=== PATIENT | male | born 1975 | race Caucasian/White ===

== ENCOUNTER 2016-12-07 08:51 | Inpatient (IN) | payer OTHER ==
--- NOTE | 2016-12-07 09:18 | HP ---
COWS - Scale Resting Pulse: 2= [place] 101-120 Sweatin= Chills/Flushing Restless Observation: 1= Difficult to Sit Still Pupil Size: 0= Normal to Room Light Bone or Joint Aches: 2= Severe Diffuse Aches Runny Nose/ Eye Tearin= Runny Nose/Eyes GI Upset > 30mins: 1= Stomach Cramp Tremor Observation: 1= Tremor [place], Not Seen Yawning Observation: 1= 1-2x During Session Anxiety or Irritability: 2=Irritable/Anxious Goose Flesh Skin: 0=Smooth Skin COWS Score: 13 Admission ROS BHS - HPI Chief Complaint: I got into heroin again, I need help, I'm so anxious from withdrawal Allergies/Adverse Reactions: Allergies Allergy/AdvReac Type Severity Reaction Status Date / Time fluphenazine HCl AdvReac Severe Itching Verified 12/07/16 09:33 [From Prolixin] haloperidol [From Haldol] AdvReac Severe Itching Verified 12/07/16 09:33 walnuts Allergy Intermediate Swelling Uncoded 12/07/16 09:33 History of Present Illness: 41 yo gentleman here for detox from heroin, also using marijuana. This is one of multiple admissions for detox. Patient reports being on [facility] methadone program, but smoked marijuana with tanisha dust and became disoriented and wound up in [facility] last July 2016, then transferred to [facility] in [place] - during that time he was taken off the methadone and when he was discharged from [facility] he states he used heroin ( october). History of drug related seizure last year. Patient was also prescribed sixty ativan 2mg on 11/11 which he abused and used up in about 2 weeks. Exam Limitations: Clinical Condition - Ebola screening Have you traveled outside of the country in the last 21 days: No Have you had contact with anyone from an Ebola affected area: No Do you have a fever: No - Review of Systems Constitutional: Chills, Loss of Appetite, Changes in sleep, Weakness EENT: reports: Nose Congestion Respiratory: reports: No Symptoms reported Cardiac: reports: Chest Tightness GI: reports: Nausea, Abdominal cramping : reports: Dysuria Musculoskeletal: reports: Back Pain, Joint Pain, Muscle Pain Integumentary: reports: Pruritus Neuro: reports: Numbness, Tremors Endocrine: reports: No Symptoms Reported Hematology: reports: No Symptoms Reported Psychiatric: reports: Judgement Intact, Orientated x3, Anxious Other Systems: Reviewed and Negative Patient History - Patient Medical History Hx Anemia: No Hx Asthma: Yes Hx Chronic Obstructive Pulmonary Disease (COPD): No Hx Cancer: No Hx Cardiac Disorders: No Hx Congestive Heart Failure: No Hx Hypertension: No Hx Hypercholesterolemia: No Hx Pacemaker: No HX Cerebrovascular Accident: No Hx Seizures: Yes (last August 2015 - drug related) Hx Dementia: No Hx Diabetes: No Hx Gastrointestinal Disorders: No Hx Liver Disease: No Hx Genitourinary Disorders: No Hx Sexually Transmitted Disorders: No Hx Renal Disease (ESRD): No Hx Thyroid Disease: No Hx Human Immunodeficiency Virus (HIV): No Hx Hepatitis C: Yes (NEEDS TREATMENT) Hx Depression: Yes (with anxiety - hospitalized july;august 2016) Hx Suicide Attempt: No Hx Bipolar Disorder: Yes (on meds, sees psych Act Team) Hx Schizophrenia: No - Patient Surgical History Past Surgical History: No Hx Neurologic Surgery: No Hx Cataract Extraction: No Hx Cardiac Surgery: No Hx Lung Surgery: No Hx Breast Surgery: No Hx Breast Biopsy: No Hx Abdominal Surgery: No Hx Appendectomy: No Hx Cholecystectomy: No Hx Genitourinary Surgery: No Hx Section: No Hx Orthopedic Surgery: Yes (right hip replacement april 2016) Anesthesia Reaction: No - PPD History Previous Implant?: Yes Documented Results: Negative w/proof Implanted On Prior [facility] Admission?: No Date: 07/17/15 PPD to be Administered?: Yes - Reproductive History Patient is a Female of Child Bearing Age (11 -55 yrs old): No (male) - Smoking Cessation Smoking history: Current every day smoker Have you smoked in the past 12 months: Yes Aproximately how many cigarettes per day: 10 Cigars Per Day: 0 Hx Chewing Tobacco Use: No Initiated information on smoking cessation: Yes 'Breaking Loose' booklet given: 12/07/16 (gives) - Substance & Tx. History Hx Alcohol Use: No Hx Substance Use: Yes Substance Use Type: Alcohol, Heroin, Marijuana, Tranquilizers - Substances Abused Heroin Route: Inhalation Frequency: Daily Amount used: 10 bags Age of first use: 14 Date of Last Use: 12/06/16 Marijuana/Hashish Route: Smoking Frequency: Daily Amount used: 1 bag Age of first use: 14 Date of Last Use: 12/07/16 Family Disease History - Family Disease History Family Disease History: Heart Disease: Mother (living, breast cancer, stroke), CA: Father (living,glaucoma, melanoma), Mother, Other: Father, Brother (three brothers, drugs, alcohol) Admission Physical Exam [facility] - Vital Signs Vital Signs: Vital Signs Period Temp Pulse Resp BP Sys/Wooten Pulse Ox Last 24 Hr 98.1 F 107 20 127/88 - Physical General Appearance: Yes: Nourished, Appropriately Dressed, Mild Distress, Obese , Anxious HEENTM: Yes: Hearing grossly Normal, Normocephalic, Normal Voice, Pharynx Normal Respiratory: Yes: No Respiratory Distress, Wheezing Neck: Yes: No masses,lesions,Nodules, Supple Breast: Yes: Breast Exam Deferred Cardiology: Yes: Regular Rhythm, Tachycardia Abdominal: Yes: Soft, Protuberent Genitourinary: Yes: Dysuria Extremities: Yes: Normal Inspection, Non-Tender Neurological: Yes: Fully Oriented, Alert, Motor Strength 5/5, Normal Mood/Affect , Normal Response Integumentary: Yes: Warm, Other (scratch claros on arms, chest from itching) Lymphatic: Yes: Within Normal Limits - Diagnostic (1) Opioid dependence with withdrawal Current Visit: Yes Status: Chronic (2) Seizure Current Visit: Yes Status: Chronic (3) Cannabis dependence Current Visit: Yes Status: Chronic (4) Nicotine dependence Current Visit: Yes Status: Chronic (5) Obesity (BMI 30-39.9) Current Visit: Yes Status: Chronic (6) left knee arthritis Current Visit: Yes Status: Chronic (7) Hepatitis C Current Visit: Yes Status: Chronic Qualifiers: Viral hepatitis chronicity: chronic Hepatic coma status: without hepatic coma Qualified Code(s): B18.2 - Chronic viral hepatitis C; B18.2 - Chronic viral hepatitis C; B18.2 - Chronic viral hepatitis C; B18.2 - Chronic viral hepatitis C Cleared for Admission S - Detox or Rehab S Level of Care: Medically Managed Detox Regimen/Protocol: Methadone [facility] Breath Alcohol Content Breath Alcohol Content: 0
[2016-12-07 09:20] VITALS: BMI 39.4
[2016-12-07] MEDS ORDERED: MAGNESIUM CITRATE 300 ML BOTTLE PO PRN (09:31)
[2016-12-07] MEDS ORDERED: LOPERAMIDE HCL 2 MG CAPSULE PO PRN (09:31)
[2016-12-07] MEDS ORDERED: MAG HYDROX/AL HYDROX/SIMETH 30 ML UNIT-DOSE CUP PO PRN (09:31)
[2016-12-07] MEDS ORDERED: P-EPHED 60MG/TRIPROLIDI 2.5MG TABLET PO PRN (09:31)
[2016-12-07] MEDS ORDERED: MENTHOL/PHENOL 1 EACH UD MM PRN (09:31)
[2016-12-07] MEDS ORDERED: ACETAMINOPHEN 325 MG TABLET (FP) PO PRN (09:31)
[2016-12-07] MEDS ORDERED: IBUPROFEN 400 MG TABLET (FP) PO PRN (09:31)
[2016-12-07] MEDS ORDERED: MAGNESIUM HYDROX 2400MG/30ML ORAL SUSPENSION 30 ML CUP PO PRN (09:31)
[2016-12-07] MEDS ORDERED: guaiFENesin/D-METHORPHAN HB 10 ML UNIT-DOSE CUPS PO PRN (09:31)
[2016-12-07] MEDS ORDERED: NICOTINE POLACRILEX 4 MG GUM BC PRN (09:31)
[2016-12-07] MEDS ORDERED: ALBUTEROL SO4 18 GM HFA INHALER IH PRN (09:33)
[2016-12-07] MEDS ORDERED: METHADONE HCL 10 MG TABLET (FOR DETOX USE ONLY) PO ONE ×2 (10:30→23:00)
[2016-12-07] MEDS: diazePAM 5 MG TABLET PO PRN ×3 (11:54→21:23)
[2016-12-07] MEDS: PRENATAL VITAMINS W/ FOLIC ACID TABLET (FP) PO SCH (11:57)
--- NOTE | 2016-12-07 14:04 | CONSULT ---
[facility] Psychiatric Consult - Data Date of interview: 12/07/16 Admission source: [facility] Identifying data: Readmission to [facility] for this 41 y/o male seeking detox treatment on for alcohol,marihuana,xanax and heroin dependence.Patient is single without children,domiciled,unemployed and supported on SSI benefits. Substance Abuse History: Discussed with patient in this session.Mr Chamberlain admits to an extensive history of substance abuse as described in this [facility] report. Smoking history: Current every day smoker. Have you smoked in the past 12 months: Yes. Aproximately how many cigarettes per day: 10. Cigars Per Day: 0. Hx Chewing Tobacco Use: No. Initiated information on smoking cessation: Yes. 'Breaking Loose' booklet given: 12/07/16 (gives). - Substance & Tx. History. Hx Alcohol Use: No. Hx Substance Use: Yes. Substance Use Type: Alcohol, Heroin, Marijuana, Tranquilizers. - Substances Abused. Heroin. Route: Inhalation. Frequency: Daily. Amount used: 10 bags. Age of first use: 14. Date of Last Use: 12/06/16. Marijuana/Hashish. Route: Smoking. Frequency: Daily. Amount used: 1 bag. Age of first use: 14. Date of Last Use: 12/07/16 Medical History: Multiple medical co-morbidities : obesity,avascular necrosis ( femoral heads),arthritis (left knee),hepatitis C,withdrawal-related seizures, history of right hip replacement and bronchial asthma. Psychiatric History: Extensive history of mental illness characterized with multiple psychotic decompensations which warranted numerous psychiatric hospitalizations.Mr Chamberlain reports the diagnosis of Bipolar Disorder.He is known to various institutions,including [facility] in [place] and [facility] in [facility].Used to be on methadone maintenance (130 mg/day).Patient is currently maintained on a regimen of neurontin 800 mg po tid + zyprexa 30 mg/hs + ativan 2 mg po bid.He was recently discharged from [facility] and [facility] in [facility].In 2016,it appears that the patient was followed by a local ACT team.Patient denies history of suicide attempts.As per self-report,medications were taken last night prior to this [facility] visit. Physical/Sexual Abuse/Trauma History: Patient denies history of abuse. Additional Comment: No toxicology results available. Mental Status Exam - Mental Status Exam Alert and Oriented to: Time, Place, Person Cognitive Function: Grossly Intact Patient Appearance: Unkempt, Disheveled (obese ; wearing an earring in left ear ; edentulous,poor oral hygiene) Mood: Nervous, Withdrawn, Anxious Affect: Mood Congruent Patient Behavior: Fatigued, Cooperative Speech Pattern: Clear Voice Loudness: Normal Thought Process: Goal Oriented Thought Disorder: Bizarre Hallucinations: Denies Suicidal Ideation: Denies Homicidal Ideation: Denies Insight/Judgement: Poor Sleep: Poorly, Difficulty falling asleep Appetite: Good Muscle strength/Tone: Normal Gait/Station: Other (not observed ; patient remains supine through the psychiatric interview) Psychiatric Findings - Problem List ([place] 1, 2,3) (1) Opioid dependence with withdrawal Current Visit: Yes Status: Acute (2) Cannabis dependence Current Visit: Yes Status: Acute (3) Nicotine dependence Current Visit: Yes Status: Chronic (4) Benzodiazepine abuse Current Visit: Yes Status: Acute Comment: As evidenced by exhausting,in less than two weeks,his refill for lorazepam (30 day supply). (5) Bipolar disorder Current Visit: Yes Status: Chronic (6) Hepatitis C Current Visit: Yes Status: Chronic Qualifiers: Viral hepatitis chronicity: chronic Hepatic coma status: without hepatic coma Qualified Code(s): B18.2 - Chronic viral hepatitis C; B18.2 - Chronic viral hepatitis C; B18.2 - Chronic viral hepatitis C; B18.2 - Chronic viral hepatitis C (7) Obesity (BMI 30-39.9) Current Visit: Yes Status: Chronic (8) Seizure Current Visit: Yes Status: Chronic (9) Avascular necrosis of the head of femur Current Visit: No Status: Chronic Comment: for ortho f/u at [facility] - needs hip replacement after further weight loss now has wheelchair (10) HTN (hypertension) Current Visit: Yes Status: Chronic Qualifiers: Hypertension type: essential hypertension Qualified Code(s): I10 - Essential (primary) hypertension; I10 - Essential (primary) hypertension; I10 - Essential (primary) hypertension Comment: for f/u with primary, wt loss can help (11) h/o left sciatica Current Visit: No Status: Chronic Comment: gabapentin, stretches - Initial Treatment Plan Initial Treatment Plan: Psychoeducation.Detoxification.Medications : gabapentin 800 mg po tid + olanzapine 30 mg po hs.Side effects/benefits discussed with the patient.He agrees with this careplan.Pharmacy claims are reviewed : noted refiils for haloperidol (20 mg/day) + cogentin (2 mg/day) issued on 11/11/16 ( in addition to medications listed above) at [facility].Mr Chamberlain declines to resume haldol and cogentin." They make me feel stiff and weird." Feels more controlled on the combination of neurontin + olanzapine.Observation.
[2016-12-07 16:56] LABS: URINE APPEARANCE SLCLOUDY; URINE BILIRUBIN NEGATIVE (NEGATIVE); URINE BLOOD NEGATIVE (NEGATIVE); URINE COLOR DKYELLOW; URINE GLUCOSE (UA) NEGATIVE (NEGATIVE); URINE KETONE NEGATIVE (NEGATIVE); URINE NITRITE NEGATIVE (NEGATIVE); URINE PROTEIN NEGATIVE (NEGATIVE); URINE UROBILINOGEN NEGATIVE mg/dL (0.2-1.0)
[2016-12-07 21:56] LABS: URINE LEUK ESTERASE Negative (NEGATIVE)
[2016-12-07] MEDS: THIAMINE HCL 100 MG TABLET (FP) PO SCH (22:21)
[2016-12-07] MEDS: OLANZapine 10 MG TABLET PO SCH (22:22)
[2016-12-07] MEDS: GABAPENTIN 400 MG CAPSULE (FP) PO SCH (22:22)
[2016-12-07] MEDS: diphenhydrAMINE HCL 50 MG CAPSULE PO PRN (22:23)
[2016-12-08] MEDS: GABAPENTIN 400 MG CAPSULE (FP) PO SCH ×3 (06:17→22:17)
[2016-12-08] MEDS: diazePAM 5 MG TABLET PO PRN ×4 (06:17→19:24)
--- NOTE | 2016-12-08 09:10 | EKG ---
Test Reason : Blood Pressure : / mmHG Vent. Rate : 100 BPM Atrial Rate : 100 BPM P-R Int : 144 ms QRS Dur : 088 ms QT Int : 324 ms P-R-T Axes : 062 041 051 degrees QTc Int : 417 ms NORMAL SINUS RHYTHM NORMAL ECG WHEN COMPARED WITH ECG OF 03-OCT-2015 10:25, PREMATURE ATRIAL COMPLEXES ARE NO LONGER PRESENT Confirmed by TYSHAWN IRWIN MD ([id number]) on 12/08/2016 9:10:08 AM Referred By: Confirmed By:TYSHAWN IRWIN MD
[2016-12-08] MEDS ORDERED: METHADONE HCL 10 MG TABLET (FOR DETOX USE ONLY) PO ONE (10:00)
[2016-12-08] MEDS: PRENATAL VITAMINS W/ FOLIC ACID TABLET (FP) PO SCH (10:28)
[2016-12-08 11:12] LABS: MCH 28.1 pg (25.7-33.7); MCHC 33.4 g/dl (32.0-35.9); MEAN CELL VOLUME 84.2 fl (80-96); PLATELET COUNT 367 K/MM3 (134-434); RDW 15.6 % (11.9-15.9); WHITE BLOOD COUNT 13.1 K/mm3 (4.0-10.0)
[2016-12-08 11:18] LABS: ALBUMIN 3.7 g/dl (3.4-5.0); ANION GAP 10 (8-16); BILIRUBIN,TOTAL 0.3 mg/dL (0.2-1.0); CALCIUM 9.1 mg/dL (8.5-10.1); CO2 22 mmol/L (21-32); CREATININE 0.6 mg/dL (0.7-1.3); GLUCOSE,RANDOM 157 mg/dL (74-106); SGOT/AST 22 U/L (15-37); SGPT/ALT 31 U/L (12-78); TOT PROT 7.6 g/dl (6.4-8.2)
[2016-12-08 11:19] LABS: ALK PHOS 117 U/L (45-117)
[2016-12-08] MEDS ORDERED: FLU VACCINE QUAD 60 MCG/0.5 ML (MDV 17-18) IM ONE (12:00)
[2016-12-08] MEDS ORDERED: ONDANSETRON *ODT* 4 MG TABLET SL ONE (12:39)
[2016-12-08] MEDS ORDERED: CYCLOBENZAPRINE HCL 10 MG TABLET (FP) PO SCH (14:00)
--- NOTE | 2016-12-08 17:11 | PN ---
BHS COWS - Scale Resting Pulse: 1= MA 81-100 Sweatin= Chills/Flushing Restless Observation: 3= Extraneous Movement Pupil Size: 0= Normal to Room Light Bone or Joint Aches: 2= Severe Diffuse Aches Runny Nose/ Eye Tearin= Runny Nose/Eyes GI Upset > 30mins: 1= Stomach Cramp Tremor Observation of Outstretched Hands: 2= Slight Tremor Visible Yawning Observation: 1= 1-2x During Session Anxiety or Irritability: 2=Irritable/Anxious Goose Flesh Skin: 0=Smooth Skin COWS Score: 15 BHS Progress Note (SOAP) Subjective: Sweating, chills, nausea (unable to eat adequately), restless, constipated x 2 days (instructed to notify nurse) Objective: 12/08/16 17:08 Last Vital Signs Temp Pulse Resp BP Pulse Ox 98.8 F 100 H 20 122/76 12/08/16 12:59 12/08/16 12:59 12/08/16 12:59 12/08/16 12:59 Laboratory Tests 12/07/16 12/08/16 12/08/16 11:42 06:14 06:14 WBC 13.1 H D RBC 5.48 Hgb 15.4 Hct 46.1 MCV 84.2 MCH 28.1 MCHC 33.4 RDW 15.6 Plt Count 367 MPV 10.0 Sodium 135 L Potassium 4.2 Chloride 103 Carbon Dioxide 22 Anion Gap 10 BUN 8 D Creatinine 0.6 L D Creat Clearance w eGFR > 60 Random Glucose 157 H D Calcium 9.1 Total Bilirubin 0.3 D AST 22 D ALT 31 D Alkaline Phosphatase 117 Total Protein 7.6 Albumin 3.7 Urine Color Dkyellow Urine Appearance Slcloudy Urine pH 6.0 Ur Specific [place] 1.015 Urine Protein Negative Urine Glucose (UA) Negative Urine Ketones Negative Urine Blood Negative Urine Nitrite Negative Urine Bilirubin Negative Urine Urobilinogen Negative Ur Leukocyte Esterase Negative RPR Titer 12/08/16 06:14 WBC RBC Hgb Hct MCV MCH MCHC RDW Plt Count MPV Sodium Potassium Chloride Carbon Dioxide Anion Gap BUN Creatinine Creat Clearance w eGFR Random Glucose Calcium Total Bilirubin AST ALT Alkaline Phosphatase Total Protein Albumin Urine Color Urine Appearance Urine pH Ur Specific [place] Urine Protein Urine Glucose (UA) Urine Ketones Urine Blood Urine Nitrite Urine Bilirubin Urine Urobilinogen Ur Leukocyte Esterase RPR Titer Nonreactive Labs noted: wbc 13.1, serum glucose 157 Assessment: 12/08/16 17:09 Withdrawal symptoms Noted with leukocytosis and hyperglycemia Plan: Continue detox Leukocytosis: asymptomatic for infection, repeat CBC Hyperglycemia: repeat fasting serum glucose, send HbA1c, start finger stick glucose ac meal with insulin novolog sliding scale coverage. Initiate antidiabetic medication if warranted.
[2016-12-08] MEDS ORDERED: ONDANSETRON *ODT* 4 MG TABLET SL PRN (20:00)
[2016-12-08] MEDS: THIAMINE HCL 100 MG TABLET (FP) PO SCH (22:17)
[2016-12-08] MEDS: OLANZapine 10 MG TABLET PO SCH (22:18)
[2016-12-09] MEDS: GABAPENTIN 400 MG CAPSULE (FP) PO SCH ×3 (05:21→22:11)
[2016-12-09] MEDS: diazePAM 5 MG TABLET PO PRN ×4 (05:21→20:11)
[2016-12-09] MEDS: CYCLOBENZAPRINE HCL 10 MG TABLET (FP) PO PRN (05:21)
[2016-12-09] MEDS: INSULIN SLIDING SCALE (NOVOLOG) 1 VIAL SQ SCH ×3 (06:52→16:33)
[2016-12-09] MEDS ORDERED: METHADONE HCL 5 MG TABLET (FOR DETOX USE ONLY) PO ONE (10:00)
--- NOTE | 2016-12-09 10:29 | PN ---
BHS COWS - Scale Resting Pulse: 0= ME 80 or Below Sweatin= Chills/Flushing Restless Observation: 3= Extraneous Movement Pupil Size: 0= Normal to Room Light Bone or Joint Aches: 4=Acute Joint/Muscle Pain Runny Nose/ Eye Tearin= Nasal Congestion GI Upset > 30mins: 1= Stomach Cramp Tremor Observation of Outstretched Hands: 1= Tremor [place], Not Seen Yawning Observation: 1= 1-2x During Session Anxiety or Irritability: 2=Irritable/Anxious Goose Flesh Skin: 0=Smooth Skin COWS Score: 14 S Progress Note (SOAP) Subjective: ANXIETY, SWEATS, NAUSEA,FATIGUE. Objective: 12/09/16 10:33 Vital Signs Temperature 98.2 F 12/09/16 09:29 Pulse Rate 59 L 12/09/16 09:29 Respiratory Rate 18 12/09/16 09:29 Blood Pressure 135/82 12/09/16 09:29 O2 Sat by Pulse Oximetry (%) Laboratory Last Values WBC 13.1 K/mm3 (4.0-10.0) H D 12/08/16 06:14 RBC 5.48 M/mm3 (4.00-5.60) 12/08/16 06:14 Hgb 15.4 GM/dL (11.7-16.9) 12/08/16 06:14 Hct 46.1 % (35.4-49) 12/08/16 06:14 MCV 84.2 fl (80-96) 12/08/16 06:14 MCH 28.1 pg (25.7-33.7) 12/08/16 06:14 MCHC 33.4 g/dl (32.0-35.9) 12/08/16 06:14 RDW 15.6 % (11.9-15.9) 12/08/16 06:14 Plt Count 367 K/MM3 (134-434) 12/08/16 06:14 MPV 10.0 fl (7.5-11.1) 12/08/16 06:14 Sodium 135 mmol/L (136-145) L 12/08/16 06:14 Potassium 4.2 mmol/L (3.5-5.1) 12/08/16 06:14 Chloride 103 mmol/L (98-107) 12/08/16 06:14 Carbon Dioxide 22 mmol/L (21-32) 12/08/16 06:14 Anion Gap 10 (8-16) 12/08/16 06:14 BUN 8 mg/dL (7-18) D 12/08/16 06:14 Creatinine 0.6 mg/dL (0.7-1.3) L D 12/08/16 06:14 Creat Clearance w eGFR > 60 (>60) 12/08/16 06:14 POC Glucometer 97 UNITS (()) 12/09/16 05:20 Random Glucose 157 mg/dL (74-106) H D 12/08/16 06:14 Fasting Glucose 92 mg/dL (70-105) 12/09/16 06:45 Calcium 9.1 mg/dL (8.5-10.1) 12/08/16 06:14 Total Bilirubin 0.3 mg/dL (0.2-1.0) D 12/08/16 06:14 AST 22 U/L (15-37) D 12/08/16 06:14 ALT 31 U/L (12-78) D 12/08/16 06:14 Alkaline Phosphatase 117 U/L (45-117) 12/08/16 06:14 Total Protein 7.6 g/dl (6.4-8.2) 12/08/16 06:14 Albumin 3.7 g/dl (3.4-5.0) 12/08/16 06:14 Urine Color Dkyellow 12/07/16 11:42 Urine Appearance Slcloudy 12/07/16 11:42 Urine pH 6.0 (5.0-8.0) 12/07/16 11:42 Ur Specific [place] 1.015 (1.005-1.025) 12/07/16 11:42 Urine Protein Negative (NEGATIVE) 12/07/16 11:42 Urine Glucose (UA) Negative (NEGATIVE) 12/07/16 11:42 Urine Ketones Negative (NEGATIVE) 12/07/16 11:42 Urine Blood Negative (NEGATIVE) 12/07/16 11:42 Urine Nitrite Negative (NEGATIVE) 12/07/16 11:42 Urine Bilirubin Negative (NEGATIVE) 12/07/16 11:42 Urine Urobilinogen Negative mg/dL (0.2-1.0) 12/07/16 11:42 Ur Leukocyte Esterase Negative (NEGATIVE) 12/07/16 11:42 RPR Titer Nonreactive (NONREACTIVE) 12/08/16 06:14 Assessment: 12/09/16 10:34 WITHDRAWAL SX Plan: CONTINUE DETOX
[2016-12-09] MEDS: PRENATAL VITAMINS W/ FOLIC ACID TABLET (FP) PO SCH (10:31)
[2016-12-09] MEDS: OLANZapine 10 MG TABLET PO SCH (22:11)
[2016-12-09] MEDS: THIAMINE HCL 100 MG TABLET (FP) PO SCH (22:11)
[2016-12-09] MEDS: diphenhydrAMINE HCL 50 MG CAPSULE PO PRN (22:11)
[2016-12-10] MEDS: INSULIN SLIDING SCALE (NOVOLOG) 1 VIAL SQ SCH ×3 (06:24→16:30)
[2016-12-10] MEDS: GABAPENTIN 400 MG CAPSULE (FP) PO SCH ×3 (06:25→22:07)
[2016-12-10] MEDS ORDERED: METHADONE HCL 5 MG TABLET (FOR DETOX USE ONLY) PO ONE (10:00)
[2016-12-10] MEDS: PRENATAL VITAMINS W/ FOLIC ACID TABLET (FP) PO SCH (10:19)
[2016-12-10] MEDS: hydrOXYzine PAMOATE 50 MG CAPSULE (FP) PO PRN ×2 (10:20→20:56)
[2016-12-10 12:02] LABS: WHITE BLOOD COUNT 8.5 K/mm3 (4.0-10.0)
[2016-12-10 12:03] LABS: BASOPHIL 0.5 % (0-2.0); EOSINOPHIL 7.6 % (0-4.5); MCH 27.9 pg (25.7-33.7); MCHC 32.8 g/dl (32.0-35.9); MEAN PLT VOLUME 9.8 fl (7.5-11.1); NEUTROPHILS 51.5 % (42.8-82.8); PLATELET COUNT 291 K/MM3 (134-434); RDW 15.4 % (11.9-15.9)
--- NOTE | 2016-12-10 12:21 | PN ---
BHS Progress Note (SOAP) Subjective: DECREASED ANXIETY,TREMORS. ALERT O X 3. NAD. Objective: 12/10/16 12:20 Vital Signs Temperature 97.9 F 12/10/16 10:04 Pulse Rate 100 H 12/10/16 10:04 Respiratory Rate 20 12/10/16 10:04 Blood Pressure 130/74 12/10/16 10:04 O2 Sat by Pulse Oximetry (%) Laboratory Last Values WBC 8.5 K/mm3 (4.0-10.0) D 12/09/16 06:45 Corrected WBC (auto) Electrical Test Engineer 12/09/16 06:45 RBC 5.23 M/mm3 (4.00-5.60) 12/09/16 06:45 Hgb 14.6 GM/dL (11.7-16.9) 12/09/16 06:45 Hct 44.5 % (35.4-49) 12/09/16 06:45 MCV 85.0 fl (80-96) 12/09/16 06:45 MCH 27.9 pg (25.7-33.7) 12/09/16 06:45 MCHC 32.8 g/dl (32.0-35.9) 12/09/16 06:45 RDW 15.4 % (11.9-15.9) 12/09/16 06:45 Plt Count 291 K/MM3 (134-434) D 12/09/16 06:45 MPV 9.8 fl (7.5-11.1) 12/09/16 06:45 Neutrophils % 51.5 % (42.8-82.8) D 12/09/16 06:45 Lymphocytes % 28.7 % (8-40) D 12/09/16 06:45 Monocytes % 11.7 % (3.8-10.2) H 12/09/16 06:45 Eosinophils % 7.6 % (0-4.5) H D 12/09/16 06:45 Basophils % 0.5 % (0-2.0) 12/09/16 06:45 Platelet Estimate Electrical Test Engineer 12/09/16 06:45 Platelet Comment Electrical Test Engineer 12/09/16 06:45 Platelet Comment Electrical Test Engineer 12/09/16 06:45 RBC Morphology Electrical Test Engineer 12/09/16 06:45 Sodium 135 mmol/L (136-145) L 12/08/16 06:14 Potassium 4.2 mmol/L (3.5-5.1) 12/08/16 06:14 Chloride 103 mmol/L (98-107) 12/08/16 06:14 Carbon Dioxide 22 mmol/L (21-32) 12/08/16 06:14 Anion Gap 10 (8-16) 12/08/16 06:14 BUN 8 mg/dL (7-18) D 12/08/16 06:14 Creatinine 0.6 mg/dL (0.7-1.3) L D 12/08/16 06:14 Creat Clearance w eGFR > 60 (>60) 12/08/16 06:14 POC Glucometer 116 UNITS (()) 12/10/16 11:11 Random Glucose 157 mg/dL (74-106) H D 12/08/16 06:14 Fasting Glucose 92 mg/dL (70-105) 12/09/16 06:45 Hemoglobin A1c % 5.9 % (4.8-6.0) 12/09/16 07:00 Calcium 9.1 mg/dL (8.5-10.1) 12/08/16 06:14 Total Bilirubin 0.3 mg/dL (0.2-1.0) D 12/08/16 06:14 AST 22 U/L (15-37) D 12/08/16 06:14 ALT 31 U/L (12-78) D 12/08/16 06:14 Alkaline Phosphatase 117 U/L (45-117) 12/08/16 06:14 Total Protein 7.6 g/dl (6.4-8.2) 12/08/16 06:14 Albumin 3.7 g/dl (3.4-5.0) 12/08/16 06:14 Urine Color Dkyellow 12/07/16 11:42 Urine Appearance Slcloudy 12/07/16 11:42 Urine pH 6.0 (5.0-8.0) 12/07/16 11:42 Ur Specific [place] 1.015 (1.005-1.025) 12/07/16 11:42 Urine Protein Negative (NEGATIVE) 12/07/16 11:42 Urine Glucose (UA) Negative (NEGATIVE) 12/07/16 11:42 Urine Ketones Negative (NEGATIVE) 12/07/16 11:42 Urine Blood Negative (NEGATIVE) 12/07/16 11:42 Urine Nitrite Negative (NEGATIVE) 12/07/16 11:42 Urine Bilirubin Negative (NEGATIVE) 12/07/16 11:42 Urine Urobilinogen Negative mg/dL (0.2-1.0) 12/07/16 11:42 Ur Leukocyte Esterase Negative (NEGATIVE) 12/07/16 11:42 RPR Titer Nonreactive (NONREACTIVE) 12/08/16 06:14 Assessment: 12/10/16 12:21 WITHDRAWAL SX Plan: CONTINUE DETOX
[2016-12-10] MEDS: diphenhydrAMINE HCL 50 MG CAPSULE PO PRN (22:06)
[2016-12-10] MEDS: OLANZapine 10 MG TABLET PO SCH (22:07)
[2016-12-10] MEDS: THIAMINE HCL 100 MG TABLET (FP) PO SCH (22:07)
[2016-12-11] MEDS: hydrOXYzine PAMOATE 50 MG CAPSULE (FP) PO PRN ×3 (05:37→16:54)
[2016-12-11] MEDS: GABAPENTIN 400 MG CAPSULE (FP) PO SCH ×3 (05:37→22:03)
[2016-12-11] MEDS: CYCLOBENZAPRINE HCL 10 MG TABLET (FP) PO PRN (05:37)
[2016-12-11] MEDS: INSULIN SLIDING SCALE (NOVOLOG) 1 VIAL SQ SCH ×3 (07:53→16:29)
[2016-12-11] MEDS ORDERED: METHADONE HCL 10 MG TABLET (FOR DETOX USE ONLY) PO ONE (10:00)
[2016-12-11] MEDS: PRENATAL VITAMINS W/ FOLIC ACID TABLET (FP) PO SCH (10:09)
--- NOTE | 2016-12-11 10:32 | PN ---
S Progress Note (SOAP) Subjective: ALERT O X 3. DECREASED ANXIETY,TREMORS.OOB AMBULATING WITH A LIMP/UNSTABLE BACK- -CHRONIC HIP PROBLEM. STATES USES CANE AND REQUESTS FOR ONE. Objective: 12/11/16 10:30 Vital Signs Temperature 97.8 F 12/11/16 08:59 Pulse Rate 93 H 12/11/16 08:59 Respiratory Rate 20 12/11/16 08:59 Blood Pressure 122/77 12/11/16 08:59 O2 Sat by Pulse Oximetry (%) Laboratory Last Values WBC 8.5 K/mm3 (4.0-10.0) D 12/09/16 06:45 Corrected WBC (auto) [employer]amp [employer] Cargo Supervisor 12/09/16 06:45 RBC 5.23 M/mm3 (4.00-5.60) 12/09/16 06:45 Hgb 14.6 GM/dL (11.7-16.9) 12/09/16 06:45 Hct 44.5 % (35.4-49) 12/09/16 06:45 MCV 85.0 fl (80-96) 12/09/16 06:45 MCH 27.9 pg (25.7-33.7) 12/09/16 06:45 MCHC 32.8 g/dl (32.0-35.9) 12/09/16 06:45 RDW 15.4 % (11.9-15.9) 12/09/16 06:45 Plt Count 291 K/MM3 (134-434) D 12/09/16 06:45 MPV 9.8 fl (7.5-11.1) 12/09/16 06:45 Neutrophils % 51.5 % (42.8-82.8) D 12/09/16 06:45 Lymphocytes % 28.7 % (8-40) D 12/09/16 06:45 Monocytes % 11.7 % (3.8-10.2) H 12/09/16 06:45 Eosinophils % 7.6 % (0-4.5) H D 12/09/16 06:45 Basophils % 0.5 % (0-2.0) 12/09/16 06:45 Platelet Estimate [employer]argo Supervisor 12/09/16 06:45 Platelet Comment [employer] And Cargo Supervisor 12/09/16 06:45 Platelet Comment R[employer] Cargo Supervisor 12/09/16 06:45 RBC Morphology [employer] Supervisor 12/09/16 06:45 Sodium 135 mmol/L (136-145) L 12/08/16 06:14 Potassium 4.2 mmol/L (3.5-5.1) 12/08/16 06:14 Chloride 103 mmol/L (98-107) 12/08/16 06:14 Carbon Dioxide 22 mmol/L (21-32) 12/08/16 06:14 Anion Gap 10 (8-16) 12/08/16 06:14 BUN 8 mg/dL (7-18) D 12/08/16 06:14 Creatinine 0.6 mg/dL (0.7-1.3) L D 12/08/16 06:14 Creat Clearance w eGFR > 60 (>60) 12/08/16 06:14 POC Glucometer 114 UNITS (()) 12/11/16 05:36 Random Glucose 157 mg/dL (74-106) H D 12/08/16 06:14 Fasting Glucose 92 mg/dL (70-105) 12/09/16 06:45 Hemoglobin A1c % 5.9 % (4.8-6.0) 12/09/16 07:00 Calcium 9.1 mg/dL (8.5-10.1) 12/08/16 06:14 Total Bilirubin 0.3 mg/dL (0.2-1.0) D 12/08/16 06:14 AST 22 U/L (15-37) D 12/08/16 06:14 ALT 31 U/L (12-78) D 12/08/16 06:14 Alkaline Phosphatase 117 U/L (45-117) 12/08/16 06:14 Total Protein 7.6 g/dl (6.4-8.2) 12/08/16 06:14 Albumin 3.7 g/dl (3.4-5.0) 12/08/16 06:14 Urine Color Dkyellow 12/07/16 11:42 Urine Appearance Slcloudy 12/07/16 11:42 Urine pH 6.0 (5.0-8.0) 12/07/16 11:42 Ur Specific [place] 1.015 (1.005-1.025) 12/07/16 11:42 Urine Protein Negative (NEGATIVE) 12/07/16 11:42 Urine Glucose (UA) Negative (NEGATIVE) 12/07/16 11:42 Urine Ketones Negative (NEGATIVE) 12/07/16 11:42 Urine Blood Negative (NEGATIVE) 12/07/16 11:42 Urine Nitrite Negative (NEGATIVE) 12/07/16 11:42 Urine Bilirubin Negative (NEGATIVE) 12/07/16 11:42 Urine Urobilinogen Negative mg/dL (0.2-1.0) 12/07/16 11:42 Ur Leukocyte Esterase Negative (NEGATIVE) 12/07/16 11:42 RPR Titer Nonreactive (NONREACTIVE) 12/08/16 06:14 Assessment: 12/11/16 10:30 WITHDRAWAL SX Plan: CONTINUE DETOX OBTAIN CANE TODAY FOR PT'S AMBULATION FALL PRECAUTION
[2016-12-11] MEDS: diphenhydrAMINE HCL 50 MG CAPSULE PO PRN (22:03)
[2016-12-11] MEDS: OLANZapine 10 MG TABLET PO SCH (22:03)
[2016-12-11] MEDS: THIAMINE HCL 100 MG TABLET (FP) PO SCH (22:03)
[2016-12-12] MEDS: GABAPENTIN 400 MG CAPSULE (FP) PO SCH (05:40)
[2016-12-12] MEDS ORDERED: METHADONE HCL 5 MG TABLET (FOR DETOX USE ONLY) PO ONE (06:00)
[2016-12-12 06:05] VITALS: BP 98/63; PULSE 67; TEMP 98.2
[2016-12-12] MEDS: INSULIN SLIDING SCALE (NOVOLOG) 1 VIAL SQ SCH (06:54)
--- NOTE | 2016-12-12 13:59 | DS ---
[facility] Detox Discharge Summary Admission Date: 12/07/16 Discharge Date: 12/12/16 - History Present History: Cannabis Dependence, Opioid Dependence, Sedative Dependence Additional Comments: PATIENT GOING TO [facility] FOR AFTERCARE. PATIENT WAS DISCHARGED FROM DETOX UNIT IN STABLE MEDICAL CONDITION. Pertinent Past History: Asthma, Hep C, Nicotine Dependence, Depression, History of Sciatica (Left-sided) , History of Avascular Necrosis of Head of Femur, History of Seizures (due to Withdrawal), Arthritis of Left Hip, Bipolar Disorder. - Physical Exam Results Vital Signs: Vital Signs Temperature 98.2 F 12/12/16 06:03 Pulse Rate 67 12/12/16 06:03 Respiratory Rate 18 12/12/16 06:03 Blood Pressure 98/63 12/12/16 06:03 O2 Sat by Pulse Oximetry (%) Pertinent Admission Physical Exam Findings: WITHDRAWAL SYMPTOMS. Laboratory Tests 12/07/16 12/08/16 12/08/16 11:42 06:14 06:14 WBC 13.1 H D Corrected WBC (auto) RBC 5.48 Hgb 15.4 Hct 46.1 MCV 84.2 MCH 28.1 MCHC 33.4 RDW 15.6 Plt Count 367 MPV 10.0 Neutrophils % Lymphocytes % Monocytes % Eosinophils % Basophils % Platelet Estimate Platelet Comment RBC Morphology Sodium 135 L Potassium 4.2 Chloride 103 Carbon Dioxide 22 Anion Gap 10 BUN 8 D Creatinine 0.6 L D Creat Clearance w eGFR > 60 POC Glucometer Random Glucose 157 H D Fasting Glucose Hemoglobin A1c % Calcium 9.1 Total Bilirubin 0.3 D AST 22 D ALT 31 D Alkaline Phosphatase 117 Total Protein 7.6 Albumin 3.7 Urine Color Dkyellow Urine Appearance Slcloudy Urine pH 6.0 Ur Specific [place] 1.015 Urine Protein Negative Urine Glucose (UA) Negative Urine Ketones Negative Urine Blood Negative Urine Nitrite Negative Urine Bilirubin Negative Urine Urobilinogen Negative Ur Leukocyte Esterase Negative RPR Titer 12/08/16 12/09/16 12/09/16 06:14 05:20 06:45 WBC 8.5 D Corrected WBC (auto) Livestock Feeder RBC 5.23 Hgb 14.6 Hct 44.5 MCV 85.0 MCH 27.9 MCHC 32.8 RDW 15.4 Plt Count 291 D MPV 9.8 Neutrophils % 51.5 D Lymphocytes % 28.7 D Monocytes % 11.7 H Eosinophils % 7.6 H D Basophils % 0.5 Platelet Estimate Livestock Feeder Platelet Comment Livestock Feeder RBC Morphology Livestock Feeder Sodium Potassium Chloride Carbon Dioxide Anion Gap BUN Creatinine Creat Clearance w eGFR POC Glucometer 97 Random Glucose Fasting Glucose Hemoglobin A1c % Calcium Total Bilirubin AST ALT Alkaline Phosphatase Total Protein Albumin Urine Color Urine Appearance Urine pH Ur Specific [place] Urine Protein Urine Glucose (UA) Urine Ketones Urine Blood Urine Nitrite Urine Bilirubin Urine Urobilinogen Ur Leukocyte Esterase RPR Titer Nonreactive 12/09/16 12/09/16 12/09/16 06:45 07:00 11:36 WBC Corrected WBC (auto) RBC Hgb Hct MCV MCH MCHC RDW Plt Count MPV Neutrophils % Lymphocytes % Monocytes % Eosinophils % Basophils % Platelet Estimate Platelet Comment RBC Morphology Sodium Potassium Chloride Carbon Dioxide Anion Gap BUN Creatinine Creat Clearance w eGFR POC Glucometer 109 Random Glucose Fasting Glucose 92 Hemoglobin A1c % 5.9 Calcium Total Bilirubin AST ALT Alkaline Phosphatase Total Protein Albumin Urine Color Urine Appearance Urine pH Ur Specific [place] Urine Protein Urine Glucose (UA) Urine Ketones Urine Blood Urine Nitrite Urine Bilirubin Urine Urobilinogen Ur Leukocyte Esterase RPR Titer 12/09/16 12/10/16 12/10/16 16:22 05:46 11:11 WBC Corrected WBC (auto) RBC Hgb Hct MCV MCH MCHC RDW Plt Count MPV Neutrophils % Lymphocytes % Monocytes % Eosinophils % Basophils % Platelet Estimate Platelet Comment RBC Morphology Sodium Potassium Chloride Carbon Dioxide Anion Gap BUN Creatinine Creat Clearance w eGFR POC Glucometer 98 91 116 Random Glucose Fasting Glucose Hemoglobin A1c % Calcium Total Bilirubin AST ALT Alkaline Phosphatase Total Protein Albumin Urine Color Urine Appearance Urine pH Ur Specific [place] Urine Protein Urine Glucose (UA) Urine Ketones Urine Blood Urine Nitrite Urine Bilirubin Urine Urobilinogen Ur Leukocyte Esterase RPR Titer 12/10/16 12/11/16 12/11/16 16:13 05:36 11:38 WBC Corrected WBC (auto) RBC Hgb Hct MCV MCH MCHC RDW Plt Count MPV Neutrophils % Lymphocytes % Monocytes % Eosinophils % Basophils % Platelet Estimate Platelet Comment RBC Morphology Sodium Potassium Chloride Carbon Dioxide Anion Gap BUN Creatinine Creat Clearance w eGFR POC Glucometer 104 114 93 Random Glucose Fasting Glucose Hemoglobin A1c % Calcium Total Bilirubin AST ALT Alkaline Phosphatase Total Protein Albumin Urine Color Urine Appearance Urine pH Ur Specific [place] Urine Protein Urine Glucose (UA) Urine Ketones Urine Blood Urine Nitrite Urine Bilirubin Urine Urobilinogen Ur Leukocyte Esterase RPR Titer 12/11/16 12/12/16 16:19 05:39 WBC Corrected WBC (auto) RBC Hgb Hct MCV MCH MCHC RDW Plt Count MPV Neutrophils % Lymphocytes % Monocytes % Eosinophils % Basophils % Platelet Estimate Platelet Comment RBC Morphology Sodium Potassium Chloride Carbon Dioxide Anion Gap BUN Creatinine Creat Clearance w eGFR POC Glucometer 100 97 Random Glucose Fasting Glucose Hemoglobin A1c % Calcium Total Bilirubin AST ALT Alkaline Phosphatase Total Protein Albumin Urine Color Urine Appearance Urine pH Ur Specific [place] Urine Protein Urine Glucose (UA) Urine Ketones Urine Blood Urine Nitrite Urine Bilirubin Urine Urobilinogen Ur Leukocyte Esterase RPR Titer LABS NOTED. - Treatment Hospital Course: Detox Protocol Followed, Detoxed Safely, Responded well, Discharged Condition Good Patient has Accepted a Rehab Referral to: NO. PT GOING TO [facility]. - Medication Discharge Medications: Ambulatory Orders Divalproex [Depakote -] 500 mg PO BID #60 tablet.ec 09/05/15 Albuterol Sulfate Inhaler - [Ventolin HFA Inhaler -] 2 inh PO Q4H PRN 12/07/16 Gabapentin [Neurontin -] 800 mg PO Q8H 12/07/16 Olanzapine [Zyprexa -] 30 mg PO HS 12/07/16 Gabapentin [Neurontin -] 800 mg PO TID #90 capsule 12/10/16 Olanzapine 30 mg PO HS #60 tablet 12/10/16 - Diagnosis (1) Benzodiazepine abuse Status: Acute (2) Cannabis dependence Status: Acute (3) Opioid dependence with withdrawal Status: Acute (4) Avascular necrosis of the head of femur Status: Chronic (5) Bipolar disorder Status: Chronic Qualifiers: Active/Remission status: remission status unspecified Qualified Code (s): F31.9 - Bipolar disorder, unspecified; F31.9 - Bipolar disorder, unspecified; F31.9 - Bipolar disorder, unspecified; F31.9 - Bipolar disorder, unspecified (6) HTN (hypertension) Status: Chronic Qualifiers: Hypertension type: essential hypertension Qualified Code(s): I10 - Essential (primary) hypertension; I10 - Essential (primary) hypertension; I10 - Essential (primary) hypertension (7) Hepatitis C Status: Chronic Qualifiers: Viral hepatitis chronicity: chronic Hepatic coma status: without hepatic coma Qualified Code(s): B18.2 - Chronic viral hepatitis C; B18.2 - Chronic viral hepatitis C; B18.2 - Chronic viral hepatitis C; B18.2 - Chronic viral hepatitis C (8) History of asthma Status: Chronic (9) Nicotine dependence Status: Chronic (10) Obesity (BMI 30-39.9) Status: Chronic (11) Seizure Status: Chronic (12) left knee arthritis Status: Chronic - AMA Did Patient Leave Against Medical Advice: No
== END 2016-12-12 08:40 | disposition home or self-care (01) | DRG 773 ==
LOC: YASAS 08:51 → Y3N 09:58
PROVIDERS: ADMIT Internal Medicine; ATTEND Internal Medicine
PROC: HZ2ZZZZ Detoxification Services for Substance Abuse Treatment (ICD-10-PCS; principal; 2016-12-07)
DX: F11.23 Opioid dependence with withdrawal (principal); F13.10 Sedative, hypnotic or anxiolytic abuse, uncomplicated; F12.20 Cannabis dependence, uncomplicated; F17.210 Nicotine dependence, cigarettes, uncomplicated; F31.9 Bipolar disorder, unspecified; B18.2 Chronic viral hepatitis C; G40.309 Generalized idiopathic epilepsy and epileptic syndromes, not intractable, without status epilepticus; J45.909 Unspecified asthma, uncomplicated; M87.852 Other osteonecrosis, left femur; M87.851 Other osteonecrosis, right femur; E66.9 Obesity, unspecified; Z68.39 Body mass index [BMI] 39.0-39.9, adult
CPT/HCPCS: 36415; 80053; 81003; 82947; 83036; 85025; 85027; 86593; 93005; 93010

== ENCOUNTER 2020-02-02 14:40 | Inpatient (IN) | payer OTHER ==
[2020-02-02 19:09] LABS: EOS % 7.8 % (0-4.5); HEMATOCRIT 40.3 % (35.4-49); HEMOGLOBIN 13.4 GM/dL (11.7-16.9); LYMPH % 20.7 % (8-40); MCH 28.3 pg (25.7-33.7); MCHC 33.3 g/dl (32.0-35.9); MEAN PLT VOLUME 8.5 fl (7.5-11.1); MONO % 9.4 % (3.8-10.2); NEUT % 61.1 % (42.8-82.8); PLATELET COUNT 440 K/MM3 (134-434); RBC 4.75 M/mm3 (4.00-5.60); RDW 16.5 % (11.9-15.9); WHITE BLOOD COUNT 11.8 K/mm3 (4.0-10.0)
[2020-02-02 19:29] LABS: POTASSIUM 5.3 mmol/L (3.5-5.1)
[2020-02-02 19:34] LABS: CALCIUM 9.4 mg/dL (8.5-10.1)
[2020-02-02 19:35] LABS: ALBUMIN 3.5 g/dl (3.4-5.0); BLOOD UREA NITROGEN 7.7 mg/dL (7-18)
[2020-02-02 19:38] LABS: CREATININE 0.6 mg/dL (0.55-1.3)
[2020-02-02 19:39] LABS: BILIRUBIN,TOTAL 0.4 mg/dL (0.2-1); TOT PROT 8.4 g/dl (6.4-8.2)
[2020-02-02] MEDS ORDERED: SODIUM CHLORIDE 0.9% 500 ML INFUS.BAG IV ONE (20:57)
[2020-02-02] MEDS ORDERED: SODIUM CHLORIDE 1,000 ML IV SCH ×2 (21:15→22:15)
[2020-02-02 22:49] LABS: URIC ACID 3.4 mg/dL (2.6-7.2)
[2020-02-03] MEDS ORDERED: FUROSEMIDE 40 MG/4 ML INJECTABLE VIAL IVPUSH ONE (03:45)
[2020-02-03] MEDS ORDERED: SODIUM CHLORIDE 1,000 ML IV SCH (04:30)
[2020-02-03] MEDS ORDERED: FUROSEMIDE 40 MG/4 ML INJECTABLE VIAL ONE (04:45)
[2020-02-03 07:04] LABS: POTASSIUM 4.7 mmol/L (3.5-5.1)
[2020-02-03 07:08] LABS: BASO % 0.7 % (0-2.0); EOS % 8.6 % (0-4.5); HEMOGLOBIN 12.2 GM/dL (11.7-16.9); LYMPH % 30.2 % (8-40); MCH 28.2 pg (25.7-33.7); MCHC 33.1 g/dl (32.0-35.9); MEAN CELL VOLUME 85.4 fl (80-96); MEAN PLT VOLUME 8.2 fl (7.5-11.1); MONO % 11.8 % (3.8-10.2); NEUT % 48.7 % (42.8-82.8); PLATELET COUNT 352 K/MM3 (134-434); RBC 4.33 M/mm3 (4.00-5.60); RDW 16.5 % (11.9-15.9); WHITE BLOOD COUNT 9.9 K/mm3 (4.0-10.0)
[2020-02-03 07:12] LABS: ALBUMIN 2.9 g/dl (3.4-5.0); BLOOD UREA NITROGEN 9.4 mg/dL (7-18)
[2020-02-03 07:15] LABS: BILIRUBIN,TOTAL 0.4 mg/dL (0.2-1); CREATININE 0.5 mg/dL (0.55-1.3); PHOSPHOROUS 4.6 mg/dL (2.5-4.9)
[2020-02-03 07:17] LABS: N-TERMINAL BNP 89.3 pg/ml (5-125)
[2020-02-03 08:12] LABS: URINE APPEARANCE CLEAR; URINE BILIRUBIN NEGATIVE (NEGATIVE); URINE COLOR YELLOW; URINE GLUCOSE (UA) NEGATIVE (NEGATIVE); URINE KETONE NEGATIVE (NEGATIVE); URINE LEUK ESTERASE NEGATIVE (NEGATIVE); URINE NITRITE NEGATIVE (NEGATIVE); URINE PROTEIN NEGATIVE (NEGATIVE)
[2020-02-03 09:57] LABS: OPIATES, URI NEGATIVE ng/ml (CUTOFF=300); PHENCYCLIDINE,URINE NEGATIVE ng/ml (CUTOFF=25)
[2020-02-03 09:59] LABS: URINE BARBITURATES NEGATIVE ng/ml (CUTOFF=200)
[2020-02-03 10:00] LABS: COCAINE, UR NEGATIVE ng/ml (CUTOFF=300); URINE AMPHETAMINES NEGATIVE ng/ml (CUTOFF=500); URINE BENZODIAZEPINES NEGATIVE ng/ml (CUTOFF=200)
[2020-02-03 10:07] LABS: METHADONE, UR POSITIVE ng/ml (CUTOFF=300)
[2020-02-03 10:19] LABS: POTASSIUM 4.4 mmol/L (3.5-5.1)
[2020-02-03 10:28] LABS: CREATININE 0.5 mg/dL (0.55-1.3)
[2020-02-03] MEDS: ENOXAPARIN NA (PORCINE) 40 MG/0.4 ML DISP.SYRIN SQ SCH (11:03)
[2020-02-03 11:17] VITALS: BMI 42.7
[2020-02-03] MEDS: clonazePAM 0.25 MG ODT TABLETS PO SCH ×2 (12:21→22:04)
[2020-02-03] MEDS: OLANZapine 10 MG TABLET PO SCH ×2 (12:21→22:05)
[2020-02-03] MEDS: NICOTINE 14 MG/24 HOURS TOPICAL PATCH TD SCH (12:22)
[2020-02-03 13:04] LABS: POTASSIUM 4.4 mmol/L (3.5-5.1)
[2020-02-03 13:05] LABS: CALCIUM 9.1 mg/dL (8.5-10.1)
[2020-02-03 13:06] LABS: BLOOD UREA NITROGEN 8.6 mg/dL (7-18)
[2020-02-03 13:09] LABS: CREATININE 0.5 mg/dL (0.55-1.3)
[2020-02-03] MEDS: DIVALPROEX SODIUM 250 MG TABLET E.C. PO SCH ×2 (14:35→22:05)
[2020-02-03] MEDS: METHADONE HCL 40 MG DISPERSABLE TABLET PO SCH (14:54)
[2020-02-03] MEDS ORDERED: guaiFENesin 200 MG/10 ML 10 ML UNIT-DOSE CUPS PO PRN (16:00)
[2020-02-03 20:55] LABS: POTASSIUM 4.5 mmol/L (3.5-5.1)
[2020-02-03 20:57] LABS: CALCIUM 8.8 mg/dL (8.5-10.1)
[2020-02-03 20:58] LABS: BLOOD UREA NITROGEN 11.3 mg/dL (7-18)
[2020-02-03 21:01] LABS: CREATININE 0.5 mg/dL (0.55-1.3)
[2020-02-03] MEDS ORDERED: PT OWN MED DRAWER 7, Y5N ONE (21:01)
[2020-02-04] MEDS ORDERED: MELATONIN 5 MG TABLETS PO ONE (00:06)
[2020-02-04] MEDS: METHADONE HCL 40 MG DISPERSABLE TABLET PO SCH (09:51)
[2020-02-04] MEDS: clonazePAM 0.25 MG ODT TABLETS PO SCH ×2 (09:51→21:32)
[2020-02-04] MEDS: OLANZapine 10 MG TABLET PO SCH ×2 (09:53→21:32)
[2020-02-04] MEDS: ENOXAPARIN NA (PORCINE) 40 MG/0.4 ML DISP.SYRIN SQ SCH (09:54)
[2020-02-04] MEDS: NICOTINE 14 MG/24 HOURS TOPICAL PATCH TD SCH (09:54)
[2020-02-04] MEDS ORDERED: PT OWN MED DRAWER 7, Y5N ONE ×2 (09:59→20:55)
[2020-02-04] MEDS: DIVALPROEX SODIUM 250 MG TABLET E.C. PO SCH ×2 (10:02→21:33)
[2020-02-04 17:43] LABS: POTASSIUM 4.6 mmol/L (3.5-5.1)
[2020-02-04 17:45] LABS: ALBUMIN 2.5 g/dl (3.4-5.0); CALCIUM 8.2 mg/dL (8.5-10.1)
[2020-02-04 17:46] LABS: BLOOD UREA NITROGEN 11.4 mg/dL (7-18)
[2020-02-04 17:49] LABS: CREATININE 0.5 mg/dL (0.55-1.3)
[2020-02-04 17:50] LABS: BILIRUBIN,TOTAL 0.2 mg/dL (0.2-1); TOT PROT 6.1 g/dl (6.4-8.2)
[2020-02-04] MEDS ORDERED: LORazepam 1 MG TABLET PO ONE (18:34)
[2020-02-05 08:18] VITALS: BP 125/59; PULSE 70; TEMP 98.4
[2020-02-05] MEDS ORDERED: PT OWN MED DRAWER 7, Y5N ONE (08:28)
[2020-02-05 08:31] LABS: POTASSIUM 4.4 mmol/L (3.5-5.1)
[2020-02-05 08:37] LABS: CALCIUM 8.2 mg/dL (8.5-10.1)
[2020-02-05 08:40] LABS: CREATININE 0.4 mg/dL (0.55-1.3)
[2020-02-05] MEDS: NICOTINE 14 MG/24 HOURS TOPICAL PATCH TD SCH (08:40)
[2020-02-05] MEDS: METHADONE HCL 40 MG DISPERSABLE TABLET PO SCH (08:41)
[2020-02-05] MEDS: clonazePAM 0.25 MG ODT TABLETS PO SCH (08:41)
[2020-02-05] MEDS: OLANZapine 10 MG TABLET PO SCH (08:42)
[2020-02-05] MEDS ORDERED: DIVALPROEX 500 MG, DIVALPROEX 250 MG PO SCH (10:00)
[2020-02-05] MEDS: ENOXAPARIN NA (PORCINE) 40 MG/0.4 ML DISP.SYRIN SQ SCH (10:48)
== END 2020-02-05 11:00 | disposition home or self-care (01) | DRG 425 ==
LOC: JER 14:40 → JERBED 20:48 → J6S 02-03 10:08
PROVIDERS: ADMIT Internal Medicine; ATTEND Student in an Organized Health Care Education/Training Program
PROC: HZ91ZZZ Pharmacotherapy for Substance Abuse Treatment, Methadone Maintenance (ICD-10-PCS; principal; 2020-02-03)
DX: E87.1 Hypo-osmolality and hyponatremia (principal); F90.9 Attention-deficit hyperactivity disorder, unspecified type; B19.20 Unspecified viral hepatitis C without hepatic coma; F17.210 Nicotine dependence, cigarettes, uncomplicated; F11.20 Opioid dependence, uncomplicated; F54 Psychological and behavioral factors associated with disorders or diseases classified elsewhere; F05 Delirium due to known physiological condition; F12.20 Cannabis dependence, uncomplicated; F20.89 Other schizophrenia; E72.20 Disorder of urea cycle metabolism, unspecified; F13.231 Sedative, hypnotic or anxiolytic dependence with withdrawal delirium; R63.1 Polydipsia; E66.9 Obesity, unspecified; Z68.41 Body mass index [BMI] 40.0-44.9, adult; D72.829 Elevated white blood cell count, unspecified; E87.5 Hyperkalemia; T42.6X5A Adverse effect of other antiepileptic and sedative-hypnotic drugs, initial encounter
CPT/HCPCS: 36415; 70450-TC; 71046-TC-FY; 80048; 80053; 80061; 80164; 80307; 81003; 82140; 82436; 83721; 83735; 83880; 83930; 83935; 84100; 84133; 84300; 84550; 85025; 93005; 93010; 99285-25; C9803; U0003

== ENCOUNTER 2020-03-15 13:47 | Emergency (ER) | payer OTHER ==
[2020-03-15 14:28] VITALS: BMI 40.6
[2020-03-15] MEDS ORDERED: METHADONE HCL 10 MG TABLET PO ONE (14:53)
[2020-03-15] MEDS ORDERED: METHADONE HCL 40 MG DISPERSABLE TABLET ONE ×2 (15:32→15:33)
[2020-03-15 16:19] VITALS: BP 98/68; PULSE 92
== END 2020-03-15 18:30 | disposition home or self-care (01) ==
LOC: JER 13:47
DX: Z79.891 Long term (current) use of opiate analgesic (principal)
CPT/HCPCS: 99283-25

== ENCOUNTER 2020-05-31 21:43 | Inpatient (IN) | payer OTHER ==
[2020-05-31] MEDS ORDERED: ALBUTEROL SO4 2.5/IPRATROPIUM 0.5 INH SOL 3 ML VIAL.NEB. NEB ONE (22:07)
[2020-05-31] MEDS ORDERED: methylPREDNISolone NA SUCC 125 MG/2 ML VIAL IVPB ONE (22:17)
[2020-05-31] MEDS ORDERED: methylPREDNISolone NA SUCC 125 MG/2 ML VIAL ONE (23:07)
[2020-06-01] MEDS ORDERED: ALBUTEROL SO4 0.083% IH SOL 2.5 MG/3 ML VIAL.NEB. NEB ONE ×2 (01:01→01:04)
[2020-06-01 02:34] LABS: BASO % 0.6 % (0-2.0); EOS % 0.8 % (0-4.5); LYMPH % 5.6 % (8-40); MCH 27.6 pg (25.7-33.7); MCHC 33.3 g/dl (32.0-35.9); MEAN CELL VOLUME 82.9 fl (80-96); MEAN PLT VOLUME 8.2 fl (7.5-11.1); MONO % 2.6 % (3.8-10.2); NEUT % 90.4 % (42.8-82.8); PLATELET COUNT 374 K/MM3 (134-434); RBC 5.07 M/mm3 (4.00-5.60); WHITE BLOOD COUNT 15.8 K/mm3 (4.0-10.0)
[2020-06-01 02:46] LABS: SODIUM 125 mmol/L (136-145)
[2020-06-01 02:48] LABS: CALCIUM 8.7 mg/dL (8.5-10.1)
[2020-06-01 02:49] LABS: ALBUMIN 3.1 g/dl (3.4-5.0); BLOOD UREA NITROGEN 7.4 mg/dL (7-18); CO2 34 mmol/L (21-32); GLUCOSE,RANDOM 149 mg/dL (74-106)
[2020-06-01 02:52] LABS: CREATININE 0.6 mg/dL (0.55-1.3); SGOT/AST 14 U/L (15-37); SGPT/ALT 15 U/L (13-61)
[2020-06-01 02:53] LABS: BILIRUBIN,TOTAL 0.4 mg/dL (0.2-1)
[2020-06-01 02:54] LABS: TOT PROT 8.1 g/dl (6.4-8.2)
[2020-06-01 02:55] LABS: ALK PHOS 84 U/L (45-117)
[2020-06-01 02:57] LABS: N-TERMINAL BNP 44.4 pg/ml (5-125)
[2020-06-01 03:12] LABS: ANION GAP 4 MMOL/L (8-16); CHLORIDE 87 mmol/L (98-107)
[2020-06-01] MEDS ORDERED: FUROSEMIDE 40 MG/4 ML INJECTABLE VIAL IVPUSH ONE (06:30)
[2020-06-01] MEDS: ALBUTEROL SO4 2.5/IPRATROPIUM 0.5 INH SOL 3 ML VIAL.NEB. NEB SCH ×2 (07:33→07:34)
[2020-06-01 08:41] LABS: HEMATOCRIT 40.3 % (35.4-49); HEMOGLOBIN 13.6 GM/dL (11.7-16.9); MCH 27.8 pg (25.7-33.7); MCHC 33.6 g/dl (32.0-35.9); MEAN CELL VOLUME 82.7 fl (80-96); MEAN PLT VOLUME 8.6 fl (7.5-11.1); PLATELET COUNT 357 K/MM3 (134-434); RBC 4.88 M/mm3 (4.00-5.60); RDW 16.5 % (11.9-15.9); WHITE BLOOD COUNT 14.1 K/mm3 (4.0-10.0)
[2020-06-01 08:56] LABS: ALBUMIN 2.9 g/dl (3.4-5.0); BLOOD UREA NITROGEN 9.1 mg/dL (7-18); CALCIUM 9.1 mg/dL (8.5-10.1)
[2020-06-01 08:59] LABS: CREATININE 0.6 mg/dL (0.55-1.3)
[2020-06-01 09:00] LABS: BILIRUBIN,TOTAL 0.3 mg/dL (0.2-1); PHOSPHOROUS 3.9 mg/dL (2.5-4.9)
[2020-06-01 09:01] LABS: TOT PROT 7.8 g/dl (6.4-8.2)
[2020-06-01] MEDS ORDERED: METHADONE HCL 10 MG TABLET (FOR DETOX USE ONLY) PO SCH (10:30)
[2020-06-01] MEDS ORDERED: METHADONE HCL 10 MG TABLET ONE (10:39)
[2020-06-01] MEDS ORDERED: METHADONE HCL 40 MG DISPERSABLE TABLET ONE (10:39)
[2020-06-01] MEDS ORDERED: PT OWN MED DRAWER 7, Y5N ONE ×5 (10:39→21:07)
[2020-06-01] MEDS: DIVALPROEX SODIUM 250 MG TABLET E.C. PO SCH ×2 (10:55→22:00)
[2020-06-01] MEDS: ENOXAPARIN NA (PORCINE) 40 MG/0.4 ML DISP.SYRIN SQ SCH (10:55)
[2020-06-01] MEDS: NICOTINE 14 MG/24 HOURS TOPICAL PATCH TD SCH (10:55)
[2020-06-01] MEDS: OLANZapine 10 MG TABLET PO SCH ×2 (10:56→21:25)
[2020-06-01] MEDS: METHADONE 40 MG, METHADONE 30 MG PO SCH (10:56)
[2020-06-01] MEDS: ALBUTEROL SO4 0.083% IH SOL 2.5 MG/3 ML VIAL.NEB. NEB PRN (11:49)
[2020-06-01] MEDS ORDERED: AZITHROMYCIN IVPB 500 MG in DEXTROSE 5%-WATER - 250 ML IVPB ONE (15:00)
[2020-06-02] MEDS ORDERED: METHADONE HCL 10 MG TABLET ONE (05:21)
[2020-06-02] MEDS ORDERED: METHADONE HCL 40 MG DISPERSABLE TABLET ONE (05:21)
[2020-06-02] MEDS: METHADONE 40 MG, METHADONE 30 MG PO SCH (05:24)
[2020-06-02] MEDS ORDERED: PT OWN MED DRAWER 7, Y5N ONE ×2 (09:36→21:29)
[2020-06-02] MEDS: ENOXAPARIN NA (PORCINE) 40 MG/0.4 ML DISP.SYRIN SQ SCH (09:39)
[2020-06-02] MEDS: DIVALPROEX SODIUM 250 MG TABLET E.C. PO SCH ×2 (09:39→21:33)
[2020-06-02] MEDS: AZITHROMYCIN IVPB 250 MG in DEXTROSE 5%-WATER - 250 ML IVPB SCH (09:39)
[2020-06-02] MEDS: NICOTINE 14 MG/24 HOURS TOPICAL PATCH TD SCH (09:39)
[2020-06-02] MEDS: OLANZapine 10 MG TABLET PO SCH ×2 (09:39→21:34)
[2020-06-02] MEDS ORDERED: FUROSEMIDE 40 MG/4 ML INJECTABLE VIAL IVPUSH SCH (10:00)
[2020-06-02 14:32] LABS: HEMATOCRIT 37.1 % (35.4-49); HEMOGLOBIN 12.3 GM/dL (11.7-16.9); MCH 27.2 pg (25.7-33.7); MCHC 33.2 g/dl (32.0-35.9); MEAN PLT VOLUME 8.7 fl (7.5-11.1); PLATELET COUNT 352 K/MM3 (134-434); RBC 4.52 M/mm3 (4.00-5.60); RDW 16.5 % (11.9-15.9); WHITE BLOOD COUNT 12.5 K/mm3 (4.0-10.0)
[2020-06-02 14:48] LABS: CALCIUM 9.2 mg/dL (8.5-10.1)
[2020-06-02 14:49] LABS: BLOOD UREA NITROGEN 14.4 mg/dL (7-18)
[2020-06-02 14:50] LABS: MAGNESIUM 2.1 mg/dL (1.8-2.4)
[2020-06-02 14:53] LABS: CREATININE 0.4 mg/dL (0.55-1.3); PHOSPHOROUS 3.4 mg/dL (2.5-4.9)
[2020-06-02] MEDS ORDERED: CEFTRIAXONE 1 G/50 ML PREMIX 50 ML IVPB ONE (15:00)
[2020-06-02] MEDS ORDERED: CEFTRIAXONE 1 GM in DEXTROSE 5%-WATER - 50 ML IVPB ONE (15:45)
[2020-06-02] MEDS ORDERED: DEXTROSE 5%-WATER - 50 ML IVPB ONE (16:14)
[2020-06-02] MEDS ORDERED: cefTRIAXone SODIUM 1 GM VIAL ONE (16:14)
[2020-06-02] MEDS: CEFTRIAXONE 1 GM in DEXTROSE 5%-WATER - 50 ML IVPB SCH (16:17)
[2020-06-02] MEDS ORDERED: clonazePAM 0.5 MG TABLET PO ONE (18:17)
[2020-06-03] MEDS ORDERED: METHADONE HCL 40 MG DISPERSABLE TABLET ONE (06:06)
[2020-06-03] MEDS ORDERED: METHADONE HCL 10 MG TABLET ONE (06:06)
[2020-06-03] MEDS: METHADONE 40 MG, METHADONE 30 MG PO SCH (06:09)
[2020-06-03] MEDS ORDERED: cefTRIAXone SODIUM 1 GM VIAL ONE (09:35)
[2020-06-03] MEDS ORDERED: PT OWN MED DRAWER 7, Y5N ONE ×2 (09:35→22:01)
[2020-06-03] MEDS ORDERED: DEXTROSE 5%-WATER - 50 ML IVPB ONE (09:36)
[2020-06-03] MEDS: NICOTINE 14 MG/24 HOURS TOPICAL PATCH TD SCH (09:39)
[2020-06-03] MEDS: DIVALPROEX SODIUM 250 MG TABLET E.C. PO SCH ×2 (09:39→22:14)
[2020-06-03] MEDS: ENOXAPARIN NA (PORCINE) 40 MG/0.4 ML DISP.SYRIN SQ SCH (09:40)
[2020-06-03] MEDS: CEFTRIAXONE 1 GM in DEXTROSE 5%-WATER - 50 ML IVPB SCH (09:41)
[2020-06-03] MEDS: AZITHROMYCIN IVPB 250 MG in DEXTROSE 5%-WATER - 250 ML IVPB SCH (09:41)
[2020-06-03] MEDS: OLANZapine 10 MG TABLET PO SCH ×2 (09:41→22:13)
[2020-06-03 09:44] LABS: HEMATOCRIT 38.1 % (35.4-49); HEMOGLOBIN 12.6 GM/dL (11.7-16.9); MCH 27.5 pg (25.7-33.7); MCHC 33.1 g/dl (32.0-35.9); MEAN CELL VOLUME 83.1 fl (80-96); MEAN PLT VOLUME 8.7 fl (7.5-11.1); PLATELET COUNT 333 K/MM3 (134-434); RBC 4.59 M/mm3 (4.00-5.60); RDW 16.6 % (11.9-15.9)
[2020-06-03 09:59] LABS: BLOOD UREA NITROGEN 14.6 mg/dL (7-18); CALCIUM 9.1 mg/dL (8.5-10.1)
[2020-06-03 10:00] LABS: MAGNESIUM 2.2 mg/dL (1.8-2.4)
[2020-06-03 10:02] LABS: CREATININE 0.6 mg/dL (0.55-1.3)
[2020-06-03 10:03] LABS: PHOSPHOROUS 3.5 mg/dL (2.5-4.9)
[2020-06-03] MEDS: ALBUTEROL SO4 0.083% IH SOL 2.5 MG/3 ML VIAL.NEB. NEB PRN (20:27)
[2020-06-04] MEDS ORDERED: METHADONE HCL 40 MG DISPERSABLE TABLET ONE (06:04)
[2020-06-04] MEDS ORDERED: METHADONE HCL 10 MG TABLET ONE (06:04)
[2020-06-04] MEDS: METHADONE 40 MG, METHADONE 30 MG PO SCH (06:10)
[2020-06-04 09:09] LABS: BASO % 0.6 % (0-2.0); EOS % 3.7 % (0-4.5); HEMATOCRIT 37.6 % (35.4-49); HEMOGLOBIN 12.6 GM/dL (11.7-16.9); LYMPH % 20.9 % (8-40); MCH 27.8 pg (25.7-33.7); MCHC 33.6 g/dl (32.0-35.9); MEAN CELL VOLUME 82.5 fl (80-96); MEAN PLT VOLUME 8.5 fl (7.5-11.1); MONO % 14.2 % (3.8-10.2); NEUT % 60.6 % (42.8-82.8); PLATELET COUNT 327 K/MM3 (134-434); RBC 4.56 M/mm3 (4.00-5.60); RDW 16.7 % (11.9-15.9); WHITE BLOOD COUNT 8.9 K/mm3 (4.0-10.0)
[2020-06-04] MEDS ORDERED: cefTRIAXone SODIUM 1 GM VIAL ONE (09:34)
[2020-06-04] MEDS ORDERED: DEXTROSE 5%-WATER - 50 ML IVPB ONE (09:34)
[2020-06-04] MEDS ORDERED: PT OWN MED DRAWER 7, Y5N ONE ×2 (09:34→21:49)
[2020-06-04 09:40] LABS: ALBUMIN 2.7 g/dl (3.4-5.0); BLOOD UREA NITROGEN 12.9 mg/dL (7-18)
[2020-06-04] MEDS: DIVALPROEX SODIUM 250 MG TABLET E.C. PO SCH ×2 (09:41→21:54)
[2020-06-04] MEDS: NICOTINE 14 MG/24 HOURS TOPICAL PATCH TD SCH (09:42)
[2020-06-04] MEDS: ENOXAPARIN NA (PORCINE) 40 MG/0.4 ML DISP.SYRIN SQ SCH (09:42)
[2020-06-04] MEDS: CEFTRIAXONE 1 GM in DEXTROSE 5%-WATER - 50 ML IVPB SCH (09:42)
[2020-06-04 09:43] LABS: CALCIUM 8.8 mg/dL (8.5-10.1); CREATININE 0.5 mg/dL (0.55-1.3); PHOSPHOROUS 4.1 mg/dL (2.5-4.9)
[2020-06-04] MEDS: OLANZapine 10 MG TABLET PO SCH ×2 (09:43→21:54)
[2020-06-04 09:44] LABS: BILIRUBIN,TOTAL 0.4 mg/dL (0.2-1); MAGNESIUM 2.2 mg/dL (1.8-2.4); TOT PROT 6.8 g/dl (6.4-8.2)
[2020-06-04] MEDS: AZITHROMYCIN IVPB 250 MG in DEXTROSE 5%-WATER - 250 ML IVPB SCH (11:05)
[2020-06-04 12:34] VITALS: BMI 45.3
[2020-06-04 15:40] LABS: URINE AMPHETAMINES NEGATIVE ng/ml (CUTOFF=500); URINE BARBITURATES NEGATIVE ng/ml (CUTOFF=200)
[2020-06-04 15:41] LABS: OPIATES, URI NEGATIVE ng/ml (CUTOFF=300); PHENCYCLIDINE,URINE NEGATIVE ng/ml (CUTOFF=25); URINE BENZODIAZEPINES NEGATIVE ng/ml (CUTOFF=200)
[2020-06-04 15:43] LABS: COCAINE, UR POSITIVE ng/ml (CUTOFF=300); METHADONE, UR POSITIVE ng/ml (CUTOFF=300)
[2020-06-04 16:17] LABS: PH,URINE 6.5 (5.0-8.0); URINE APPEARANCE CLEAR; URINE BILIRUBIN NEGATIVE (NEGATIVE); URINE COLOR DK YELLOW; URINE GLUCOSE (UA) NEGATIVE (NEGATIVE); URINE KETONE TRACE (NEGATIVE); URINE LEUK ESTERASE NEGATIVE (NEGATIVE); URINE NITRITE NEGATIVE (NEGATIVE); URINE PROTEIN NEGATIVE (NEGATIVE)
[2020-06-05] MEDS ORDERED: METHADONE HCL 10 MG TABLET ONE (06:05)
[2020-06-05] MEDS ORDERED: METHADONE HCL 40 MG DISPERSABLE TABLET ONE (06:06)
[2020-06-05] MEDS: METHADONE 40 MG, METHADONE 30 MG PO SCH (06:08)
[2020-06-05] MEDS: ALBUTEROL SO4 0.083% IH SOL 2.5 MG/3 ML VIAL.NEB. NEB PRN (07:20)
[2020-06-05] MEDS ORDERED: DEXTROSE 5%-WATER - 50 ML IVPB ONE (09:10)
[2020-06-05] MEDS ORDERED: cefTRIAXone SODIUM 1 GM VIAL ONE (09:10)
[2020-06-05] MEDS ORDERED: PT OWN MED DRAWER 7, Y5N ONE (09:10)
[2020-06-05] MEDS: CEFTRIAXONE 1 GM in DEXTROSE 5%-WATER - 50 ML IVPB SCH (09:17)
[2020-06-05] MEDS: ENOXAPARIN NA (PORCINE) 40 MG/0.4 ML DISP.SYRIN SQ SCH (09:18)
[2020-06-05] MEDS: NICOTINE 14 MG/24 HOURS TOPICAL PATCH TD SCH (09:18)
[2020-06-05] MEDS: DIVALPROEX SODIUM 250 MG TABLET E.C. PO SCH (09:18)
[2020-06-05] MEDS: OLANZapine 10 MG TABLET PO SCH (09:18)
[2020-06-05] MEDS: AZITHROMYCIN IVPB 250 MG in DEXTROSE 5%-WATER - 250 ML IVPB SCH (10:02)
[2020-06-05 10:03] LABS: BLOOD UREA NITROGEN 13.3 mg/dL (7-18); CALCIUM 9.2 mg/dL (8.5-10.1); MAGNESIUM 2.4 mg/dL (1.8-2.4)
[2020-06-05 10:06] LABS: CREATININE 0.6 mg/dL (0.55-1.3); PHOSPHOROUS 3.8 mg/dL (2.5-4.9)
[2020-06-05 14:44] VITALS: BP 135/59; PULSE 101; TEMP 99
== END 2020-06-05 16:17 | disposition home or self-care (01) | DRG 133 ==
LOC: JER 21:43 → JERBED 06-01 03:09 → J6S 06-01 05:34
PROVIDERS: ADMIT Hospitalist; ATTEND Internal Medicine
DX: J96.01 Acute respiratory failure with hypoxia (principal); J18.9 Pneumonia, unspecified organism; F20.9 Schizophrenia, unspecified; E87.1 Hypo-osmolality and hyponatremia; F90.9 Attention-deficit hyperactivity disorder, unspecified type; F11.20 Opioid dependence, uncomplicated; B19.20 Unspecified viral hepatitis C without hepatic coma; F31.9 Bipolar disorder, unspecified; F17.210 Nicotine dependence, cigarettes, uncomplicated; E66.01 Morbid (severe) obesity due to excess calories; Z68.42 Body mass index [BMI] 45.0-49.9, adult; R63.1 Polydipsia; Z96.641 Presence of right artificial hip joint
CPT/HCPCS: 36415; 71045-TC-FY; 80048; 80053; 80061; 80164; 80307; 81003; 83036; 83721; 83735; 83880; 83930; 83935; 84100; 84484; 84540; 85025; 85027; 87040; 87070; 87186; 87205; 87899; 93005; 93010; 93306-TC; 94640; 94761; 99285-25; C9803; U0003; U0005

== ENCOUNTER 2020-10-25 06:33 | Inpatient (IN) | payer OTHER ==
[2020-10-25] MEDS ORDERED: OLANZapine 7.5 MG TABLET PO ONE (08:00)
[2020-10-25] MEDS ORDERED: VANCOMYCIN HCL 1,500 MG in DEXTROSE 5%-WATER - 500 ML IVPB ONE (08:04)
[2020-10-25] MEDS ORDERED: VANCOMYCIN 1 GM in D5W (PRE-DOCKED) 1,000 MG/250 ML IVPB ONE (08:05)
[2020-10-25] MEDS ORDERED: VANCOMYCIN IVPB ONE (08:17)
[2020-10-25] MEDS ORDERED: VANCOMYCIN 1 GRAM (PRE-DOCKED) 1,000 MG/250 ML BAG IVPB ONE (08:49)
[2020-10-25] MEDS ORDERED: OLANZapine 10 MG TABLET ONE (08:50)
[2020-10-25] MEDS ORDERED: methaDONE HCL 10 MG TABLET PO ONE (08:54)
[2020-10-25] MEDS ORDERED: methaDONE HCL 10 MG TABLET ONE (09:17)
[2020-10-25] MEDS ORDERED: methaDONE HCL 40 MG DISPERSABLE TABLET ONE (09:18)
[2020-10-25] MEDS ORDERED: PT OWN MED DRAWER 7, Y5N ONE (09:19)
[2020-10-25 09:21] LABS: BASO % 0.8 % (0-2.0); EOS % 0.7 % (0-4.5); HEMATOCRIT 41.5 % (35.4-49); LYMPH % 9.7 % (8-40); MCH 27.8 pg (25.7-33.7); MCHC 33.8 g/dl (32.0-35.9); MEAN CELL VOLUME 82.2 fl (80-96); MONO % 11.2 % (3.8-10.2); NEUT % 77.6 % (42.8-82.8); PLATELET COUNT 399 10^3/uL (134-434); RBC 5.05 M/mm3 (4.00-5.60); RDW 16.6 % (11.9-15.9); WHITE BLOOD COUNT 13.8 K/mm3 (4.0-10.0)
[2020-10-25 09:31] LABS: CHLORIDE 92 mmol/L (98-107); SODIUM 128 mmol/L (136-145)
[2020-10-25] MEDS ORDERED: ALBUTEROL SO4 2.5/IPRATROPIUM 0.5 INH SOL 3 ML VIAL.NEB. NEB ONE ×2 (09:31→09:59)
[2020-10-25 09:33] LABS: ALBUMIN 2.9 g/dl (3.4-5.0); ANION GAP 6 MMOL/L (8-16); CALCIUM 9.2 mg/dL (8.5-10.1); CO2 31 mmol/L (21-32); GLUCOSE,RANDOM 92 mg/dL (74-106); LIPASE 54 U/L (73-393)
[2020-10-25 09:34] LABS: BLOOD UREA NITROGEN 8.3 mg/dL (7-18)
[2020-10-25 09:35] LABS: CREATININE 0.6 mg/dL (0.55-1.3); SGOT/AST 36 U/L (15-37); SGPT/ALT 24 U/L (13-61)
[2020-10-25 09:38] LABS: BILIRUBIN,TOTAL 1.2 mg/dL (0.2-1); TOT PROT 8.4 g/dl (6.4-8.2)
[2020-10-25 09:39] LABS: ALK PHOS 93 U/L (45-117)
[2020-10-25] MEDS ORDERED: VANCOMYCIN PREMIX 1.5 GM 1,500 MG/300 ML BAG IVPB ONE (10:00)
[2020-10-25 10:41] LABS: COCAINE, UR NEGATIVE (NEGATIVE); OPIATES, URI NEGATIVE (NEGATIVE); URINE BENZODIAZEPINES NEGATIVE (NEGATIVE)
[2020-10-25 10:42] LABS: PHENCYCLIDINE,URINE NEGATIVE (NEGATIVE)
[2020-10-25 10:43] LABS: EPI CELLS 5 /uL (0-25.1); HYALINE CASTS 1 /uL (0-3.1); METHADONE, UR POSITIVE (NEGATIVE); PH,URINE 6.5 (5.0-8.0); URINE AMPHETAMINES NEGATIVE (NEGATIVE); URINE APPEARANCE CLEAR; URINE BACTERIA 3 /uL (0-1359); URINE BARBITURATES NEGATIVE (NEGATIVE); URINE BILIRUBIN 1+ (NEGATIVE); URINE COLOR DK YELLOW; URINE GLUCOSE (UA) NEGATIVE (NEGATIVE); URINE KETONE NEGATIVE (NEGATIVE); URINE LEUK ESTERASE TRACE (NEGATIVE); URINE NITRITE NEGATIVE (NEGATIVE); URINE PROTEIN NEGATIVE (NEGATIVE); URINE RBC 4 /uL (0-23.9); URINE WBC 6 /uL (0-25.8)
[2020-10-25] MEDS ORDERED: ALBUTEROL SO4 0.083% IH SOL 2.5 MG/3 ML VIAL.NEB. NEB PRN (11:14)
[2020-10-25] MEDS ORDERED: LORazepam 2 MG/ML SDV VIAL IVPUSH PRN (11:50)
[2020-10-25 13:56] VITALS: BMI 48.5
[2020-10-25 16:22] LABS: CALCIUM 8.7 mg/dL (8.5-10.1)
[2020-10-25 16:23] LABS: BLOOD UREA NITROGEN 11.8 mg/dL (7-18)
[2020-10-25 16:26] LABS: CREATININE 0.7 mg/dL (0.55-1.3)
[2020-10-25] MEDS: SODIUM CHLORIDE 1,000 ML IV SCH (19:42)
[2020-10-25] MEDS ORDERED: VANCOMYCIN 1 GM in D5W (PRE-DOCKED) 1,000 MG/250 ML IVPB SCH ×2 (20:00→22:00)
[2020-10-25] MEDS: VANCOMYCIN PREMIX 1.5 GM 1,500 MG/300 ML BAG IVPB SCH (21:50)
[2020-10-25] MEDS: OLANZapine 10 MG TABLET PO SCH (21:51)
[2020-10-25] MEDS ORDERED: DIVALPROEX SODIUM 250 MG TABLET E.C. PO SCH (22:00)
[2020-10-26] MEDS ORDERED: methaDONE HCL 10 MG TABLET ONE (09:59)
[2020-10-26] MEDS ORDERED: PT OWN MED DRAWER 7, Y5N ONE ×4 (09:59→16:44)
[2020-10-26] MEDS ORDERED: methaDONE HCL 40 MG DISPERSABLE TABLET ONE (09:59)
[2020-10-26] MEDS ORDERED: methaDONE HCL 10 MG TABLET (FOR DETOX USE ONLY) PO SCH (10:00)
[2020-10-26] MEDS: OLANZapine 10 MG TABLET PO SCH ×2 (10:04→22:31)
[2020-10-26] MEDS: methaDONE 40 MG, methaDONE 30 MG PO SCH (10:05)
[2020-10-26] MEDS: ENOXAPARIN NA (PORCINE) 40 MG/0.4 ML DISP.SYRIN SQ SCH (10:07)
[2020-10-26 10:49] LABS: HEMATOCRIT 38.7 % (35.4-49); MCH 27.7 pg (25.7-33.7); MCHC 33.7 g/dl (32.0-35.9); MEAN PLT VOLUME 8.7 fl (7.5-11.1); PLATELET COUNT 354 10^3/uL (134-434); RBC 4.71 M/mm3 (4.00-5.60); RDW 16.5 % (11.9-15.9); WHITE BLOOD COUNT 10.6 K/mm3 (4.0-10.0)
[2020-10-26 11:19] LABS: CALCIUM 9.2 mg/dL (8.5-10.1)
[2020-10-26 11:22] LABS: CREATININE 0.6 mg/dL (0.55-1.3)
[2020-10-26] MEDS: VANCOMYCIN PREMIX 1.5 GM 1,500 MG/300 ML BAG IVPB SCH (12:47)
[2020-10-26] MEDS: SODIUM CHLORIDE 1,000 ML IV SCH (14:44)
[2020-10-26] MEDS: DIVALPROEX SODIUM 250 MG TABLET E.C. PO SCH ×3 (16:46→22:31)
[2020-10-27] MEDS ORDERED: MELATONIN 5 MG TABLETS PO ONE (00:25)
[2020-10-27] MEDS ORDERED: ALPRAZolam 1 MG TABLET PO ONE (02:31)
[2020-10-27] MEDS ORDERED: methaDONE HCL 40 MG DISPERSABLE TABLET ONE (06:04)
[2020-10-27] MEDS ORDERED: methaDONE HCL 10 MG TABLET ONE (06:04)
[2020-10-27] MEDS: OLANZapine 10 MG TABLET PO SCH ×3 (06:18→22:09)
[2020-10-27] MEDS: methaDONE 40 MG, methaDONE 30 MG PO SCH (06:18)
[2020-10-27] MEDS: VANCOMYCIN PREMIX 1.5 GM 1,500 MG/300 ML BAG IVPB SCH ×2 (07:44→09:26)
[2020-10-27] MEDS ORDERED: PT OWN MED DRAWER 7, Y5N ONE (08:44)
[2020-10-27] MEDS: ENOXAPARIN NA (PORCINE) 40 MG/0.4 ML DISP.SYRIN SQ SCH (09:26)
[2020-10-27] MEDS: DIVALPROEX SODIUM 250 MG TABLET E.C. PO SCH ×2 (09:27→22:18)
[2020-10-27 10:47] LABS: HEMATOCRIT 38.8 % (35.4-49); HEMOGLOBIN 13.1 GM/dL (11.7-16.9); MCH 27.8 pg (25.7-33.7); MCHC 33.8 g/dl (32.0-35.9); MEAN CELL VOLUME 82.4 fl (80-96); MEAN PLT VOLUME 8.5 fl (7.5-11.1); PLATELET COUNT 381 10^3/uL (134-434); RBC 4.71 M/mm3 (4.00-5.60); RDW 16.4 % (11.9-15.9); WHITE BLOOD COUNT 8.6 K/mm3 (4.0-10.0)
[2020-10-27 11:06] LABS: CALCIUM 9.1 mg/dL (8.5-10.1)
[2020-10-27 11:08] LABS: BLOOD UREA NITROGEN 11.8 mg/dL (7-18)
[2020-10-27 11:11] LABS: CREATININE 0.6 mg/dL (0.55-1.3)
[2020-10-27] MEDS: AMOX TR/POT CLAV 875MG/125MG TABLETS (FP) PO SCH (17:13)
[2020-10-27] MEDS: MELATONIN 5 MG TABLETS PO SCH (22:09)
[2020-10-28] MEDS: SODIUM CHLORIDE 1,000 ML IV SCH ×2 (01:30→18:16)
[2020-10-28] MEDS ORDERED: methaDONE HCL 40 MG DISPERSABLE TABLET ONE (05:58)
[2020-10-28] MEDS ORDERED: methaDONE HCL 10 MG TABLET ONE (05:58)
[2020-10-28] MEDS: methaDONE 40 MG, methaDONE 30 MG PO SCH (06:00)
[2020-10-28] MEDS: OLANZapine 10 MG TABLET PO SCH ×3 (06:03→21:17)
[2020-10-28] MEDS: ENOXAPARIN NA (PORCINE) 40 MG/0.4 ML DISP.SYRIN SQ SCH (11:04)
[2020-10-28] MEDS: DIVALPROEX SODIUM 250 MG TABLET E.C. PO SCH ×2 (11:05→21:19)
[2020-10-28] MEDS: AMOX TR/POT CLAV 875MG/125MG TABLETS (FP) PO SCH ×2 (11:05→18:10)
[2020-10-28] MEDS: MELATONIN 5 MG TABLETS PO SCH (21:16)
[2020-10-29] MEDS ORDERED: methaDONE HCL 40 MG DISPERSABLE TABLET ONE (04:50)
[2020-10-29] MEDS ORDERED: methaDONE HCL 10 MG TABLET ONE (04:50)
[2020-10-29] MEDS: methaDONE 40 MG, methaDONE 30 MG PO SCH (05:16)
[2020-10-29] MEDS: OLANZapine 10 MG TABLET PO SCH ×3 (05:17→21:22)
[2020-10-29 10:25] LABS: EOS % 7.8 % (0-4.5); HEMATOCRIT 35.3 % (35.4-49); HEMOGLOBIN 11.8 GM/dL (11.7-16.9); LYMPH % 17.7 % (8-40); MCH 27.6 pg (25.7-33.7); MCHC 33.4 g/dl (32.0-35.9); MEAN CELL VOLUME 82.5 fl (80-96); MEAN PLT VOLUME 8.2 fl (7.5-11.1); MONO % 11.6 % (3.8-10.2); NEUT % 61.9 % (42.8-82.8); PLATELET COUNT 309 10^3/uL (134-434); RBC 4.28 M/mm3 (4.00-5.60); RDW 16.5 % (11.9-15.9); WHITE BLOOD COUNT 8.2 K/mm3 (4.0-10.0)
[2020-10-29 10:45] LABS: CALCIUM 8.8 mg/dL (8.5-10.1)
[2020-10-29] MEDS ORDERED: PT OWN MED DRAWER 7, Y5N ONE (10:45)
[2020-10-29 10:46] LABS: BLOOD UREA NITROGEN 11.2 mg/dL (7-18)
[2020-10-29 10:49] LABS: CREATININE 0.6 mg/dL (0.55-1.3)
[2020-10-29] MEDS: ENOXAPARIN NA (PORCINE) 40 MG/0.4 ML DISP.SYRIN SQ SCH (10:50)
[2020-10-29] MEDS: SODIUM CHLORIDE 1,000 ML IV SCH (10:50)
[2020-10-29] MEDS: DIVALPROEX SODIUM 250 MG TABLET E.C. PO SCH ×2 (10:50→21:22)
[2020-10-29] MEDS: AMOX TR/POT CLAV 875MG/125MG TABLETS (FP) PO SCH ×2 (10:50→17:51)
[2020-10-29] MEDS ORDERED: LORazepam 2 MG TABLET PO ONE (11:05)
[2020-10-29] MEDS ORDERED: LORazepam 1 MG TABLET PO ONE ×2 (11:15→15:45)
[2020-10-29] MEDS: MELATONIN 5 MG TABLETS PO SCH (21:23)
[2020-10-30] MEDS ORDERED: methaDONE HCL 40 MG DISPERSABLE TABLET ONE (05:19)
[2020-10-30] MEDS ORDERED: methaDONE HCL 10 MG TABLET ONE (05:19)
[2020-10-30] MEDS: methaDONE 40 MG, methaDONE 30 MG PO SCH (05:29)
[2020-10-30] MEDS: OLANZapine 10 MG TABLET PO SCH ×3 (05:29→21:00)
[2020-10-30 09:11] LABS: BASO % 1.1 % (0-2.0); EOS % 7.6 % (0-4.5); HEMATOCRIT 37.4 % (35.4-49); HEMOGLOBIN 12.4 GM/dL (11.7-16.9); LYMPH % 24.7 % (8-40); MCH 27.7 pg (25.7-33.7); MCHC 33.2 g/dl (32.0-35.9); MEAN CELL VOLUME 83.6 fl (80-96); MEAN PLT VOLUME 8.4 fl (7.5-11.1); MONO % 8.9 % (3.8-10.2); NEUT % 57.7 % (42.8-82.8); PLATELET COUNT 349 10^3/uL (134-434); RBC 4.47 M/mm3 (4.00-5.60); RDW 16.5 % (11.9-15.9); WHITE BLOOD COUNT 8.9 K/mm3 (4.0-10.0)
[2020-10-30 09:34] LABS: ALBUMIN 2.6 g/dl (3.4-5.0); BLOOD UREA NITROGEN 11.9 mg/dL (7-18)
[2020-10-30 09:36] LABS: CREATININE 0.7 mg/dL (0.55-1.3); PHOSPHOROUS 3.4 mg/dL (2.5-4.9)
[2020-10-30 09:37] LABS: BILIRUBIN,TOTAL 0.7 mg/dL (0.2-1); TOT PROT 7.7 g/dl (6.4-8.2)
[2020-10-30] MEDS: LORazepam 1 MG TABLET PO PRN ×2 (10:09→16:27)
[2020-10-30] MEDS: DIVALPROEX SODIUM 250 MG TABLET E.C. PO SCH ×2 (10:09→21:00)
[2020-10-30] MEDS: AMOX TR/POT CLAV 875MG/125MG TABLETS (FP) PO SCH ×2 (10:09→17:40)
[2020-10-30] MEDS: ENOXAPARIN NA (PORCINE) 40 MG/0.4 ML DISP.SYRIN SQ SCH (10:09)
[2020-10-30] MEDS ORDERED: PT OWN MED DRAWER 7, Y5N ONE (11:47)
[2020-10-30] MEDS: MELATONIN 5 MG TABLETS PO SCH (21:00)
[2020-10-31] MEDS ORDERED: methaDONE HCL 10 MG TABLET ONE (05:04)
[2020-10-31] MEDS ORDERED: methaDONE HCL 40 MG DISPERSABLE TABLET ONE (05:04)
[2020-10-31] MEDS: OLANZapine 10 MG TABLET PO SCH ×3 (05:09→22:23)
[2020-10-31] MEDS: methaDONE 40 MG, methaDONE 30 MG PO SCH (05:09)
[2020-10-31] MEDS: AMOX TR/POT CLAV 875MG/125MG TABLETS (FP) PO SCH ×2 (09:53→17:43)
[2020-10-31] MEDS: LORazepam 1 MG TABLET PO PRN ×2 (09:53→22:32)
[2020-10-31] MEDS: ENOXAPARIN NA (PORCINE) 40 MG/0.4 ML DISP.SYRIN SQ SCH (10:00)
[2020-10-31] MEDS: DIVALPROEX SODIUM 250 MG TABLET E.C. PO SCH ×2 (10:00→22:25)
[2020-10-31 11:46] LABS: BASO % 1.1 % (0-2.0); EOS % 7.9 % (0-4.5); HEMATOCRIT 34.7 % (35.4-49); HEMOGLOBIN 11.6 GM/dL (11.7-16.9); LYMPH % 17.6 % (8-40); MCH 27.4 pg (25.7-33.7); MCHC 33.6 g/dl (32.0-35.9); MEAN CELL VOLUME 81.7 fl (80-96); MEAN PLT VOLUME 8.2 fl (7.5-11.1); MONO % 10.7 % (3.8-10.2); NEUT % 62.7 % (42.8-82.8); PLATELET COUNT 298 10^3/uL (134-434); RBC 4.24 M/mm3 (4.00-5.60); RDW 16.6 % (11.9-15.9); WHITE BLOOD COUNT 8.5 K/mm3 (4.0-10.0)
[2020-10-31 12:08] LABS: BLOOD UREA NITROGEN 10.4 mg/dL (7-18); CALCIUM 8.4 mg/dL (8.5-10.1)
[2020-10-31 12:09] LABS: ALBUMIN 2.5 g/dl (3.4-5.0)
[2020-10-31 12:11] LABS: CREATININE 0.6 mg/dL (0.55-1.3)
[2020-10-31 12:12] LABS: BILIRUBIN,TOTAL 0.3 mg/dL (0.2-1); PHOSPHOROUS 3.7 mg/dL (2.5-4.9); TOT PROT 7.2 g/dl (6.4-8.2)
[2020-10-31] MEDS: MELATONIN 5 MG TABLETS PO SCH (22:23)
[2020-10-31] MEDS ORDERED: PT OWN MED DRAWER 7, Y5N ONE (22:28)
[2020-11-01] MEDS ORDERED: methaDONE HCL 10 MG TABLET ONE (05:01)
[2020-11-01] MEDS ORDERED: methaDONE HCL 40 MG DISPERSABLE TABLET ONE (05:02)
[2020-11-01] MEDS: methaDONE 40 MG, methaDONE 30 MG PO SCH (05:10)
[2020-11-01] MEDS: OLANZapine 10 MG TABLET PO SCH ×2 (05:10→13:51)
[2020-11-01] MEDS: AMOX TR/POT CLAV 875MG/125MG TABLETS (FP) PO SCH (08:15)
[2020-11-01 09:05] LABS: BASO % 0.7 % (0-2.0); HEMATOCRIT 36.5 % (35.4-49); LYMPH % 22.6 % (8-40); MCH 27.5 pg (25.7-33.7); MCHC 32.9 g/dl (32.0-35.9); MEAN CELL VOLUME 83.5 fl (80-96); MONO % 10.8 % (3.8-10.2); NEUT % 55.9 % (42.8-82.8); PLATELET COUNT 307 10^3/uL (134-434); RBC 4.38 M/mm3 (4.00-5.60); RDW 16.6 % (11.9-15.9); WHITE BLOOD COUNT 8.5 K/mm3 (4.0-10.0)
[2020-11-01] MEDS ORDERED: PT OWN MED DRAWER 7, Y5N ONE (09:21)
[2020-11-01] MEDS: DIVALPROEX SODIUM 250 MG TABLET E.C. PO SCH ×2 (09:25→09:28)
[2020-11-01] MEDS: ENOXAPARIN NA (PORCINE) 40 MG/0.4 ML DISP.SYRIN SQ SCH (09:27)
[2020-11-01 09:35] LABS: ALBUMIN 2.6 g/dl (3.4-5.0); BLOOD UREA NITROGEN 10.2 mg/dL (7-18); CALCIUM 9.1 mg/dL (8.5-10.1); MAGNESIUM 2.1 mg/dL (1.8-2.4)
[2020-11-01 09:38] LABS: CREATININE 0.5 mg/dL (0.55-1.3); PHOSPHOROUS 4.2 mg/dL (2.5-4.9)
[2020-11-01 09:39] LABS: BILIRUBIN,TOTAL 0.7 mg/dL (0.2-1)
[2020-11-01 09:40] LABS: TOT PROT 7.4 g/dl (6.4-8.2)
[2020-11-01] MEDS ORDERED: guaiFENesin/D-METHORPHAN HB 10 ML UNIT-DOSE CUPS PO PRN (11:55)
[2020-11-01] MEDS ORDERED: ACETAMINOPHEN 325 MG TABLET (FP) PO PRN (11:55)
[2020-11-01] MEDS: LORazepam 1 MG TABLET PO PRN (12:50)
[2020-11-01 14:28] VITALS: BP 114/68; PULSE 76; TEMP 98.9
== END 2020-11-01 15:57 | disposition home or self-care (01) | DRG 383 ==
LOC: JER 06:33 → JERBED 10:39 → J5S 13:07 → J8W 10-31 19:55
PROVIDERS: ADMIT Internal Medicine; ATTEND Internal Medicine
DX: L03.311 Cellulitis of abdominal wall (principal); E87.1 Hypo-osmolality and hyponatremia; F11.20 Opioid dependence, uncomplicated; Z68.42 Body mass index [BMI] 45.0-49.9, adult; F22 Delusional disorders; F25.9 Schizoaffective disorder, unspecified; L89.90 Pressure ulcer of unspecified site, unspecified stage; F17.210 Nicotine dependence, cigarettes, uncomplicated; F29 Unspecified psychosis not due to a substance or known physiological condition; F90.9 Attention-deficit hyperactivity disorder, unspecified type; R11.0 Nausea; R63.1 Polydipsia; Z96.649 Presence of unspecified artificial hip joint; D72.829 Elevated white blood cell count, unspecified; E66.01 Morbid (severe) obesity due to excess calories; F12.90 Cannabis use, unspecified, uncomplicated; F31.9 Bipolar disorder, unspecified; F41.9 Anxiety disorder, unspecified; G40.909 Epilepsy, unspecified, not intractable, without status epilepticus
CPT/HCPCS: 36415; 71045-TC-FY; 80048; 80053; 80164; 80307; 81003; 82570; 83690; 83735; 83935; 84100; 84300; 85025; 85027; 85730; 87040; 87070; 87086; 87205; 93005; 93010; 99285-25; C9803; G0480; U0003; U0005

== ENCOUNTER 2020-12-28 04:02 | Inpatient (IN) | payer OTHER ==
[2020-12-28 04:27] LABS: BASO % 1.4 % (0-2.0); EOS % 2.5 % (0-4.5); HEMATOCRIT 41.8 % (35.4-49); HEMOGLOBIN 13.8 GM/dL (11.7-16.9); MCH 27.5 pg (25.7-33.7); MCHC 33.1 g/dl (32.0-35.9); MEAN CELL VOLUME 83.1 fl (80-96); MEAN PLT VOLUME 8.4 fl (7.5-11.1); MONO % 4.3 % (3.8-10.2); NEUT % 80.8 % (42.8-82.8); PLATELET COUNT 443 10^3/uL (134-434); RBC 5.03 M/mm3 (4.00-5.60); RDW 17.5 % (11.9-15.9); WHITE BLOOD COUNT 19.7 K/mm3 (4.0-10.0)
[2020-12-28 04:29] LABS: ALLENS TEST POSITIVE; ARTERIAL BLD GAS O2 SATURATION 90.9 % (95-98); ARTERIAL BLOOD GAS BASE EXCESS -0.1 mmol/L (-2-2); ARTERIAL BLOOD GAS PO2 71.1 mmHg (80-100); ARTERIAL BLOOD GAS pH 7.239 (7.350-7.450)
[2020-12-28 04:30] LABS: VENT RATE 14
[2020-12-28 04:46] LABS: CHLORIDE 93 mmol/L (98-107); SODIUM 131 mmol/L (136-145)
[2020-12-28 04:48] LABS: CALCIUM 9.1 mg/dL (8.5-10.1)
[2020-12-28 04:49] LABS: ALBUMIN 2.8 g/dl (3.4-5.0); CO2 32 mmol/L (21-32); GLUCOSE,RANDOM 156 mg/dL (74-106)
[2020-12-28 04:52] LABS: CREATININE 0.6 mg/dL (0.55-1.3); SGOT/AST 61 U/L (15-37); SGPT/ALT 25 U/L (13-61)
[2020-12-28 04:53] LABS: BILIRUBIN,TOTAL 0.4 mg/dL (0.2-1)
[2020-12-28 04:54] LABS: TOT PROT 8.5 g/dl (6.4-8.2)
[2020-12-28 04:55] LABS: ALK PHOS 88 U/L (45-117)
[2020-12-28 05:00] LABS: ANION GAP 5 MMOL/L (8-16)
[2020-12-28] MEDS ORDERED: ALBUTEROL SO4 2.5/IPRATROPIUM 0.5 INH SOL 3 ML VIAL.NEB. NEB SCH (05:00)
[2020-12-28 06:26] LABS: ARTERIAL BLOOD GAS BASE EXCESS 0.4 mmol/L (-2-2); ARTERIAL BLOOD GAS PO2 96.5 mmHg (80-100)
[2020-12-28 06:28] LABS: ARTERIAL BLOOD GAS pH 7.165 (7.350-7.450)
[2020-12-28 06:47] LABS: CALCIUM 9.4 mg/dL (8.5-10.1)
[2020-12-28 06:48] LABS: BLOOD UREA NITROGEN 11.4 mg/dL (7-18)
[2020-12-28 06:51] LABS: CREATININE 0.5 mg/dL (0.55-1.3)
[2020-12-28] MEDS ORDERED: RAPID SEQUENCE INTUBATION KIT NR ONE (07:09)
[2020-12-28] MEDS ORDERED: ROCURONIUM BROMIDE 100 MG/10 ML VIAL ONE (07:14)
[2020-12-28] MEDS ORDERED: fentaNYL CITRATE 250 MCG/5 ML VIAL ONE (07:21)
[2020-12-28] MEDS ORDERED: ETOMIDATE 40 MG/20 ML VIAL IVPUSH ONE (07:36)
[2020-12-28] MEDS ORDERED: ROCURONIUM BROMIDE 50 MG/5 ML VIAL IV ONE (07:36)
[2020-12-28] MEDS ORDERED: SODIUM CHLORIDE 0.9% 500 ML INFUS.BAG IV ONE (07:40)
[2020-12-28] MEDS ORDERED: FENTANYL IVPB 500 MCG/100 ML BAG IVPB SCH (07:45)
[2020-12-28] MEDS ORDERED: FENTANYL NS IVPB 500 MCG/100 ML BAG IVPB ONE (07:48)
[2020-12-28] MEDS ORDERED: MIDAZOLAM IN 0.9 % SOD.CHLORID 1 MG/1 ML PLAST..BAG ONE (08:21)
[2020-12-28 08:27] LABS: ARTERIAL BLOOD GAS BASE EXCESS -0.5 mmol/L (-2-2); ARTERIAL BLOOD GAS PO2 71.7 mmHg (80-100); ARTERIAL BLOOD GAS pH 7.237 (7.350-7.450)
[2020-12-28] MEDS: MIDAZOLAM IN 0.9 % SOD.CHLORID 100 MG/100 ML PLAST..BAG IVPB SCH (08:27)
[2020-12-28 08:28] LABS: ALLENS TEST POSITIVE
[2020-12-28 08:29] LABS: VENT MODE A/C; VENT RATE 18
[2020-12-28] MEDS ORDERED: SODIUM CHLORIDE 1,000 ML IV SCH (08:30)
[2020-12-28] MEDS ORDERED: METOPROLOL TARTRATE 5 MG/5 ML VIAL IVPUSH ONE (08:33)
[2020-12-28] MEDS: FENTANYL NS IVPB 500 MCG/100 ML BAG IVPB SCH (08:45)
[2020-12-28] MEDS ORDERED: ROCURONIUM BROMIDE 100 MG/10 ML VIAL IV ONE ×3 (09:09→10:30)
[2020-12-28] MEDS ORDERED: METOPROLOL TARTRATE 5 MG/5 ML VIAL IVPUSH PRN (09:38)
[2020-12-28 09:53] LABS: EPI CELLS 30 /uL (0-25.1); HYALINE CASTS 14 /uL (0-3.1); PH,URINE 5.5 (5.0-8.0); URINE APPEARANCE CLEAR; URINE BACTERIA 36 /uL (0-1359); URINE BILIRUBIN 1+ (NEGATIVE); URINE COLOR DK YELLOW; URINE GLUCOSE (UA) NEGATIVE (NEGATIVE); URINE KETONE TRACE (NEGATIVE); URINE LEUK ESTERASE NEGATIVE (NEGATIVE); URINE NITRITE NEGATIVE (NEGATIVE); URINE PROTEIN 2+ (NEGATIVE); URINE RBC 167 /uL (0-23.9); URINE WBC 22 /uL (0-25.8)
[2020-12-28] MEDS ORDERED: LORazepam 2 MG/ML SDV VIAL IVPUSH ONE ×2 (09:55→14:16)
[2020-12-28 09:59] LABS: URINE AMPHETAMINES NEGATIVE (NEGATIVE)
[2020-12-28] MEDS: PROPOFOL 1,000,000 MCG/100 ML VIAL IVPB SCH (10:06)
[2020-12-28] MEDS: ENOXAPARIN NA (PORCINE) 40 MG/0.4 ML DISP.SYRIN SQ SCH (10:20)
[2020-12-28] MEDS ORDERED: SODIUM CHLORIDE 1,000 ML IV STA (10:55)
[2020-12-28] MEDS ORDERED: DOPAMINE 400 MG/D5W - 400,000 MCG/250 ML INFUS.BAG IVPB SCH (11:00)
[2020-12-28 11:08] LABS: URINE BARBITURATES NEGATIVE (NEGATIVE); URINE BENZODIAZEPINES NEGATIVE (NEGATIVE)
[2020-12-28 11:09] LABS: OPIATES, URI NEGATIVE (NEGATIVE); PHENCYCLIDINE,URINE NEGATIVE (NEGATIVE)
[2020-12-28 11:13] LABS: COCAINE, UR POSITIVE (NEGATIVE); METHADONE, UR POSITIVE (NEGATIVE)
[2020-12-28 11:51] LABS: ARTERIAL BLD GAS O2 SATURATION 88.9 % (95-98); ARTERIAL BLOOD GAS BASE EXCESS 2.9 mmol/L (-2-2); ARTERIAL BLOOD GAS PO2 55.7 mmHg (80-100); ARTERIAL BLOOD GAS pH 7.403 (7.350-7.450)
[2020-12-28 12:14] LABS: ALLENS TEST POSITIVE
[2020-12-28 12:15] LABS: VENT MODE A/C; VENT RATE 26
[2020-12-28] MEDS: MUPIROCIN 2% TOPICAL OINTMENT FOR DECOLONIZATION NS SCH ×2 (13:29→21:54)
[2020-12-28] MEDS ORDERED: NOREPINEPHRINE D5W PREMIX 16,000 MCG/500 ML BAG IVPB SCH (13:30)
[2020-12-28] MEDS ORDERED: DEXTROSE 5%-WATER - 50 ML IVPB ONE ×2 (13:51→18:01)
[2020-12-28] MEDS ORDERED: PIPERACILLIN/TAZOBACTAM 3.375 GM VIAL IVPB ONE ×2 (13:51→18:01)
[2020-12-28] MEDS: PIPERACILLIN/TAZOB 3.375 GM 3.375 GM in DEXTROSE 5%-WATER - 50 ML IVPB SCH ×2 (15:00→18:04)
[2020-12-28] MEDS: INSULIN SLIDING SCALE (NOVOLOG) 1 VIAL SQ SCH ×2 (18:25→21:53)
[2020-12-28] MEDS: CHLORHEXIDINE GLUCONATE 4% CLEANSER FOR DECOLONIZATION TP SCH (21:54)
[2020-12-29] MEDS ORDERED: PIPERACILLIN/TAZOBACTAM 3.375 GM VIAL IVPB ONE ×3 (00:14→16:32)
[2020-12-29] MEDS ORDERED: DEXTROSE 5%-WATER - 50 ML IVPB ONE ×3 (00:15→16:32)
[2020-12-29] MEDS: PIPERACILLIN/TAZOB 3.375 GM 3.375 GM in DEXTROSE 5%-WATER - 50 ML IVPB SCH ×3 (01:37→17:53)
[2020-12-29] MEDS ORDERED: NOREPINEPHRINE D5W PREMIX 16,000 MCG/500 ML BAG IVPB SCH (04:52)
[2020-12-29] MEDS: NOREPINEPHRINE D5W PREMIX 16,000 MCG/500 ML BAG IVPB SCH (05:03)
[2020-12-29] MEDS: INSULIN SLIDING SCALE (NOVOLOG) 1 VIAL SQ SCH ×4 (06:36→21:15)
[2020-12-29 07:14] LABS: BASO % 0.8 % (0-2.0); HEMATOCRIT 37.8 % (35.4-49); HEMOGLOBIN 12.6 GM/dL (11.7-16.9); LYMPH % 14.5 % (8-40); MCH 27.5 pg (25.7-33.7); MCHC 33.5 g/dl (32.0-35.9); MEAN CELL VOLUME 82.2 fl (80-96); MEAN PLT VOLUME 8.9 fl (7.5-11.1); MONO % 6.8 % (3.8-10.2); NEUT % 73.9 % (42.8-82.8); PLATELET COUNT 386 10^3/uL (134-434); RDW 17.2 % (11.9-15.9); WHITE BLOOD COUNT 14.2 K/mm3 (4.0-10.0)
[2020-12-29 07:32] LABS: ALBUMIN 2.6 g/dl (3.4-5.0); BLOOD UREA NITROGEN 21.6 mg/dL (7-18); CALCIUM 8.5 mg/dL (8.5-10.1); MAGNESIUM 1.8 mg/dL (1.8-2.4)
[2020-12-29 07:36] LABS: PHOSPHOROUS 2.2 mg/dL (2.5-4.9)
[2020-12-29 07:37] LABS: BILIRUBIN,TOTAL 1.3 mg/dL (0.2-1)
[2020-12-29] MEDS ORDERED: MAGNESIUM SULF 50% (8.12 MEQ/2 ML-1 GM VIAL) IVPB ONE (08:17)
[2020-12-29] MEDS ORDERED: POTASSIUM PHOSPHATE 30 MM in SODIUM CHLORIDE 250 ML IVPB ONE (08:40)
[2020-12-29] MEDS: PROPOFOL 1,000,000 MCG/100 ML VIAL IVPB SCH ×2 (09:36→15:14)
[2020-12-29] MEDS: MIDAZOLAM IN 0.9 % SOD.CHLORID 100 MG/100 ML PLAST..BAG IVPB SCH (09:45)
[2020-12-29] MEDS: FENTANYL NS IVPB 500 MCG/100 ML BAG IVPB SCH ×2 (09:46→15:14)
[2020-12-29] MEDS: ENOXAPARIN NA (PORCINE) 40 MG/0.4 ML DISP.SYRIN SQ SCH (09:46)
[2020-12-29] MEDS: PANTOPRAZOLE SODIUM 40 MG VIAL IVPUSH SCH (15:03)
[2020-12-29] MEDS: MUPIROCIN 2% TOPICAL OINTMENT FOR DECOLONIZATION NS SCH ×2 (15:04→21:12)
[2020-12-29] MEDS: CHLORHEXIDINE GLUCONATE 4% CLEANSER FOR DECOLONIZATION TP SCH (21:12)
[2020-12-30] MEDS ORDERED: PIPERACILLIN/TAZOBACTAM 3.375 GM VIAL IVPB ONE ×4 (01:05→23:08)
[2020-12-30] MEDS ORDERED: DEXTROSE 5%-WATER - 50 ML IVPB ONE ×4 (01:05→23:08)
[2020-12-30] MEDS: PIPERACILLIN/TAZOB 3.375 GM 3.375 GM in DEXTROSE 5%-WATER - 50 ML IVPB SCH ×4 (01:15→17:28)
[2020-12-30] MEDS ORDERED: FENTANYL NS IVPB 500 MCG/100 ML BAG IVPB ONE (06:45)
[2020-12-30] MEDS: NOREPINEPHRINE D5W PREMIX 16,000 MCG/500 ML BAG IVPB SCH (06:56)
[2020-12-30] MEDS: INSULIN SLIDING SCALE (NOVOLOG) 1 VIAL SQ SCH ×4 (06:57→21:13)
[2020-12-30] MEDS: PROPOFOL 1,000,000 MCG/100 ML VIAL IVPB SCH ×3 (07:49→17:28)
[2020-12-30] MEDS: FENTANYL NS IVPB 500 MCG/100 ML BAG IVPB SCH ×2 (07:59→12:49)
[2020-12-30] MEDS: ENOXAPARIN NA (PORCINE) 40 MG/0.4 ML DISP.SYRIN SQ SCH (09:13)
[2020-12-30] MEDS: PANTOPRAZOLE SODIUM 40 MG VIAL IVPUSH SCH (09:13)
[2020-12-30] MEDS: MIDAZOLAM IN 0.9 % SOD.CHLORID 100 MG/100 ML PLAST..BAG IVPB SCH ×2 (09:14→16:29)
[2020-12-30] MEDS: MUPIROCIN 2% TOPICAL OINTMENT FOR DECOLONIZATION NS SCH ×2 (09:16→21:12)
[2020-12-30 10:11] LABS: ARTERIAL BLD GAS O2 SATURATION 90.6 % (95-98); ARTERIAL BLOOD GAS BASE EXCESS 0.4 mmol/L (-2-2); ARTERIAL BLOOD GAS PO2 55.1 mmHg (80-100); ARTERIAL BLOOD GAS pH 7.462 (7.350-7.450)
[2020-12-30 10:12] LABS: ALLENS TEST POSITIVE
[2020-12-30 10:13] LABS: VENT MODE AC; VENT RATE 26
[2020-12-30] MEDS ORDERED: DEXTROSE 50%-WATER - 25 GM/50 ML VIAL IVPUSH ONE (12:23)
[2020-12-30] MEDS ORDERED: DEXTROSE 50%-WATER 25 GM/50 ML DISP.SYRIN ONE (12:27)
[2020-12-30 12:51] LABS: BASO % 0.5 % (0-2.0); HEMATOCRIT 36.9 % (35.4-49); HEMOGLOBIN 12.6 GM/dL (11.7-16.9); LYMPH % 10.2 % (8-40); MCH 27.9 pg (25.7-33.7); MCHC 34.1 g/dl (32.0-35.9); MEAN CELL VOLUME 81.9 fl (80-96); MEAN PLT VOLUME 8.3 fl (7.5-11.1); MONO % 3.9 % (3.8-10.2); NEUT % 80.4 % (42.8-82.8); PLATELET COUNT 311 10^3/uL (134-434); RBC 4.51 M/mm3 (4.00-5.60); RDW 17.5 % (11.9-15.9)
[2020-12-30 13:21] LABS: BLOOD UREA NITROGEN 13.3 mg/dL (7-18); CALCIUM 8.5 mg/dL (8.5-10.1); MAGNESIUM 2.4 mg/dL (1.8-2.4)
[2020-12-30 13:25] LABS: CREATININE 0.6 mg/dL (0.55-1.3); PHOSPHOROUS 4.4 mg/dL (2.5-4.9)
[2020-12-30] MEDS ORDERED: FENTANYL IVPB 500 MCG/100 ML BAG IVPB ONE (20:37)
[2020-12-30] MEDS: CHLORHEXIDINE GLUCONATE 4% CLEANSER FOR DECOLONIZATION TP SCH (21:13)
[2020-12-31] MEDS: PIPERACILLIN/TAZOB 3.375 GM 3.375 GM in DEXTROSE 5%-WATER - 50 ML IVPB SCH ×3 (01:17→17:34)
[2020-12-31] MEDS: PROPOFOL 1,000,000 MCG/100 ML VIAL IVPB SCH ×8 (07:57→23:00)
[2020-12-31] MEDS: INSULIN SLIDING SCALE (NOVOLOG) 1 VIAL SQ SCH ×4 (08:00→23:00)
[2020-12-31] MEDS: MIDAZOLAM IN 0.9 % SOD.CHLORID 100 MG/100 ML PLAST..BAG IVPB SCH ×3 (08:30→22:00)
[2020-12-31] MEDS ORDERED: METOCLOPRAMIDE HCL INJECTION 10 MG/2 ML VIAL IVPUSH PRN (08:31)
[2020-12-31] MEDS: ALBUTEROL SO4 2.5/IPRATROPIUM 0.5 INH SOL 3 ML VIAL.NEB. NEB SCH ×5 (08:32→23:56)
[2020-12-31] MEDS: NOREPINEPHRINE D5W PREMIX 16,000 MCG/500 ML BAG IVPB SCH ×2 (08:33→23:08)
[2020-12-31 08:46] LABS: EPI CELLS 6 /uL (0-25.1); HYALINE CASTS 2 /uL (0-3.1); PH,URINE 5.5 (5.0-8.0); URINE APPEARANCE TURBID; URINE BILIRUBIN 2+ (NEGATIVE); URINE COLOR DK YELLOW; URINE GLUCOSE (UA) NEGATIVE (NEGATIVE); URINE KETONE NEGATIVE (NEGATIVE); URINE LEUK ESTERASE 1+ (NEGATIVE); URINE NITRITE POSITIVE (NEGATIVE); URINE PROTEIN TRACE (NEGATIVE); URINE RBC 42 /uL (0-23.9); URINE WBC 13 /uL (0-25.8)
[2020-12-31] MEDS: FENTANYL IVPB 500 MCG/100 ML BAG IVPB SCH ×3 (08:52→17:35)
[2020-12-31] MEDS ORDERED: ROCURONIUM BROMIDE 100 MG/10 ML VIAL IV ONE (09:13)
[2020-12-31] MEDS ORDERED: DEXTROSE 5%-WATER - 50 ML IVPB ONE ×2 (10:25→17:04)
[2020-12-31] MEDS ORDERED: PIPERACILLIN/TAZOBACTAM 3.375 GM VIAL IVPB ONE ×2 (10:25→17:04)
[2020-12-31] MEDS: PANTOPRAZOLE SODIUM 40 MG VIAL IVPUSH SCH (10:28)
[2020-12-31] MEDS: ENOXAPARIN NA (PORCINE) 40 MG/0.4 ML DISP.SYRIN SQ SCH (10:28)
[2020-12-31] MEDS: MUPIROCIN 2% TOPICAL OINTMENT FOR DECOLONIZATION NS SCH ×2 (10:32→22:59)
[2020-12-31 12:18] LABS: ALLENS TEST POSITIVE; ARTERIAL BLD GAS O2 SATURATION 91.8 % (95-98); ARTERIAL BLOOD GAS BASE EXCESS -0.9 mmol/L (-2-2); ARTERIAL BLOOD GAS PO2 67.5 mmHg (80-100); ARTERIAL BLOOD GAS pH 7.321 (7.350-7.450)
[2020-12-31 12:19] LABS: VENT MODE AC; VENT RATE 26
[2020-12-31] MEDS ORDERED: fentaNYL CITRATE 250 MCG/5 ML VIAL ONE (13:14)
[2020-12-31] MEDS ORDERED: LACTATED RINGERS SOLUTION 1000 ML INFUS.BAG IV ONE (21:55)
[2020-12-31] MEDS: CHLORHEXIDINE GLUCONATE 4% CLEANSER FOR DECOLONIZATION TP SCH (22:58)
[2020-12-31] MEDS ORDERED: PT OWN MED DRAWER 7, Y5N ONE (23:06)
[2021-01-01] MEDS: FENTANYL IVPB 500 MCG/100 ML BAG IVPB SCH ×3 (00:42→22:47)
[2021-01-01] MEDS ORDERED: PIPERACILLIN/TAZOBACTAM 3.375 GM VIAL IVPB ONE ×3 (02:35→18:24)
[2021-01-01] MEDS ORDERED: DEXTROSE 5%-WATER - 50 ML IVPB ONE ×3 (02:36→18:24)
[2021-01-01] MEDS: PIPERACILLIN/TAZOB 3.375 GM 3.375 GM in DEXTROSE 5%-WATER - 50 ML IVPB SCH ×3 (02:41→18:40)
[2021-01-01] MEDS: ALBUTEROL SO4 2.5/IPRATROPIUM 0.5 INH SOL 3 ML VIAL.NEB. NEB SCH ×5 (03:50→20:30)
[2021-01-01 06:13] LABS: ARTERIAL BLOOD GAS BASE EXCESS -1.1 mmol/L (-2-2); ARTERIAL BLOOD GAS PO2 65.8 mmHg (80-100); ARTERIAL BLOOD GAS pH 7.311 (7.350-7.450)
[2021-01-01 06:23] LABS: ALLENS TEST POSITIVE; VENT MODE A/C
[2021-01-01 06:24] LABS: VENT RATE 26
[2021-01-01] MEDS: PROPOFOL 1,000,000 MCG/100 ML VIAL IVPB SCH ×3 (06:50→13:55)
[2021-01-01] MEDS: INSULIN SLIDING SCALE (NOVOLOG) 1 VIAL SQ SCH ×4 (06:51→22:47)
[2021-01-01] MEDS: MIDAZOLAM IN 0.9 % SOD.CHLORID 100 MG/100 ML PLAST..BAG IVPB SCH ×2 (07:10→09:08)
[2021-01-01 07:25] LABS: HEMATOCRIT 35.9 % (35.4-49); HEMOGLOBIN 11.8 GM/dL (11.7-16.9); MCH 27.1 pg (25.7-33.7); MCHC 32.8 g/dl (32.0-35.9); MEAN CELL VOLUME 82.6 fl (80-96); MEAN PLT VOLUME 9.4 fl (7.5-11.1); PLATELET COUNT 294 10^3/uL (134-434); RBC 4.35 M/mm3 (4.00-5.60); RDW 17.6 % (11.9-15.9)
[2021-01-01 07:51] LABS: ALBUMIN 2.2 g/dl (3.4-5.0); BLOOD UREA NITROGEN 14.6 mg/dL (7-18); CALCIUM 8.6 mg/dL (8.5-10.1); MAGNESIUM 2.6 mg/dL (1.8-2.4)
[2021-01-01 07:54] LABS: CREATININE 0.8 mg/dL (0.55-1.3)
[2021-01-01 07:56] LABS: BILIRUBIN,TOTAL 1.9 mg/dL (0.2-1); TOT PROT 6.9 g/dl (6.4-8.2)
[2021-01-01] MEDS: NOREPINEPHRINE D5W PREMIX 16,000 MCG/500 ML BAG IVPB SCH (08:53)
[2021-01-01] MEDS: PANTOPRAZOLE SODIUM 40 MG VIAL IVPUSH SCH (09:07)
[2021-01-01] MEDS: ENOXAPARIN NA (PORCINE) 40 MG/0.4 ML DISP.SYRIN SQ SCH (09:07)
[2021-01-01] MEDS: MUPIROCIN 2% TOPICAL OINTMENT FOR DECOLONIZATION NS SCH ×2 (09:08→22:46)
[2021-01-01 09:28] LABS: ANISOCYTOSIS 0; MACROCYTOSIS 0; OVALOCYTE 1+; PLATELET ESTIMATE NORMAL; TOXIC GRANULATION 2+
[2021-01-01] MEDS: SODIUM CHLORIDE 1,000 ML IV SCH (16:12)
[2021-01-01] MEDS: CHLORHEXIDINE GLUCONATE 4% CLEANSER FOR DECOLONIZATION TP SCH (22:47)
[2021-01-02] MEDS ORDERED: PIPERACILLIN/TAZOBACTAM 3.375 GM VIAL IVPB ONE ×3 (01:03→17:09)
[2021-01-02] MEDS ORDERED: DEXTROSE 5%-WATER - 50 ML IVPB ONE ×3 (01:04→17:09)
[2021-01-02] MEDS: PIPERACILLIN/TAZOB 3.375 GM 3.375 GM in DEXTROSE 5%-WATER - 50 ML IVPB SCH ×3 (01:08→17:17)
[2021-01-02] MEDS: FENTANYL IVPB 500 MCG/100 ML BAG IVPB SCH ×4 (01:08→14:40)
[2021-01-02] MEDS: PROPOFOL 1,000,000 MCG/100 ML VIAL IVPB SCH ×6 (01:09→21:36)
[2021-01-02] MEDS: ALBUTEROL SO4 2.5/IPRATROPIUM 0.5 INH SOL 3 ML VIAL.NEB. NEB SCH ×6 (04:00→20:34)
[2021-01-02] MEDS: NOREPINEPHRINE D5W PREMIX 16,000 MCG/500 ML BAG IVPB SCH (05:00)
[2021-01-02] MEDS: INSULIN SLIDING SCALE (NOVOLOG) 1 VIAL SQ SCH ×4 (06:35→22:33)
[2021-01-02 06:42] LABS: BASO % 0.4 % (0-2.0); EOS % 4.6 % (0-4.5); HEMATOCRIT 34.7 % (35.4-49); HEMOGLOBIN 11.5 GM/dL (11.7-16.9); LYMPH % 6.1 % (8-40); MCH 27.1 pg (25.7-33.7); MCHC 33.1 g/dl (32.0-35.9); MEAN PLT VOLUME 9.2 fl (7.5-11.1); MONO % 8.3 % (3.8-10.2); NEUT % 80.6 % (42.8-82.8); PLATELET COUNT 274 10^3/uL (134-434); RBC 4.23 M/mm3 (4.00-5.60); RDW 17.5 % (11.9-15.9); WHITE BLOOD COUNT 19.4 K/mm3 (4.0-10.0)
[2021-01-02 07:34] LABS: BLOOD UREA NITROGEN 10.6 mg/dL (7-18); CALCIUM 8.8 mg/dL (8.5-10.1); CREATININE 0.6 mg/dL (0.55-1.3)
[2021-01-02] MEDS: MIDAZOLAM IN 0.9 % SOD.CHLORID 100 MG/100 ML PLAST..BAG IVPB SCH ×2 (08:35→20:03)
[2021-01-02] MEDS: PANTOPRAZOLE SODIUM 40 MG VIAL IVPUSH SCH (09:05)
[2021-01-02] MEDS: ENOXAPARIN NA (PORCINE) 40 MG/0.4 ML DISP.SYRIN SQ SCH (09:05)
[2021-01-02] MEDS ORDERED: DEXTROSE 50%-WATER - 25 GM/50 ML VIAL IVPUSH ONE (17:18)
[2021-01-02] MEDS ORDERED: DEXTROSE 50%-WATER 25 GM/50 ML DISP.SYRIN ONE (17:18)
[2021-01-02] MEDS: SODIUM CHLORIDE 1,000 ML IV SCH (17:39)
[2021-01-02] MEDS: CHLORHEXIDINE GLUCONATE 4% CLEANSER FOR DECOLONIZATION TP SCH (21:36)
[2021-01-03] MEDS: ALBUTEROL SO4 2.5/IPRATROPIUM 0.5 INH SOL 3 ML VIAL.NEB. NEB SCH ×6 (00:45→20:10)
[2021-01-03] MEDS ORDERED: PIPERACILLIN/TAZOBACTAM 3.375 GM VIAL IVPB ONE ×3 (01:18→16:29)
[2021-01-03] MEDS ORDERED: DEXTROSE 5%-WATER - 50 ML IVPB ONE ×3 (01:19→16:30)
[2021-01-03] MEDS: FENTANYL IVPB 500 MCG/100 ML BAG IVPB SCH ×3 (01:20→22:00)
[2021-01-03] MEDS: PIPERACILLIN/TAZOB 3.375 GM 3.375 GM in DEXTROSE 5%-WATER - 50 ML IVPB SCH ×3 (01:20→17:44)
[2021-01-03] MEDS ORDERED: ROCURONIUM BROMIDE 50 MG/5 ML VIAL IV ONE (01:23)
[2021-01-03 02:20] LABS: ALLENS TEST POSITIVE; ARTERIAL BLD GAS O2 SATURATION 91.5 % (95-98); ARTERIAL BLOOD GAS BASE EXCESS 2.7 mmol/L (-2-2); ARTERIAL BLOOD GAS PO2 67.2 mmHg (80-100); ARTERIAL BLOOD GAS pH 7.321 (7.350-7.450)
[2021-01-03 02:21] LABS: VENT RATE 26
[2021-01-03] MEDS: PROPOFOL 1,000,000 MCG/100 ML VIAL IVPB SCH ×4 (04:06→22:00)
[2021-01-03] MEDS: MIDAZOLAM IN 0.9 % SOD.CHLORID 100 MG/100 ML PLAST..BAG IVPB SCH ×2 (04:38→12:28)
[2021-01-03] MEDS: NOREPINEPHRINE D5W PREMIX 16,000 MCG/500 ML BAG IVPB SCH (05:10)
[2021-01-03] MEDS ORDERED: ROCURONIUM BROMIDE 50 MG/5 ML SYRINGE IV ONE (05:30)
[2021-01-03] MEDS: INSULIN SLIDING SCALE (NOVOLOG) 1 VIAL SQ SCH ×4 (06:11→21:16)
[2021-01-03 07:49] LABS: HEMATOCRIT 35.2 % (35.4-49); HEMOGLOBIN 11.6 GM/dL (11.7-16.9); MCH 27.1 pg (25.7-33.7); MEAN PLT VOLUME 9.6 fl (7.5-11.1); PLATELET COUNT 251 10^3/uL (134-434); RDW 17.6 % (11.9-15.9); WHITE BLOOD COUNT 16.3 K/mm3 (4.0-10.0)
[2021-01-03 08:39] LABS: BLOOD UREA NITROGEN 9.1 mg/dL (7-18); CALCIUM 8.7 mg/dL (8.5-10.1); CREATININE 0.6 mg/dL (0.55-1.3); MAGNESIUM 2.2 mg/dL (1.8-2.4); PHOSPHOROUS 3.7 mg/dL (2.5-4.9)
[2021-01-03 09:03] LABS: ANISOCYTOSIS 2+; MACROCYTOSIS 0; PLATELET ESTIMATE NORMAL
[2021-01-03] MEDS: PANTOPRAZOLE SODIUM 40 MG VIAL IVPUSH SCH (09:15)
[2021-01-03] MEDS: ENOXAPARIN NA (PORCINE) 40 MG/0.4 ML DISP.SYRIN SQ SCH (09:15)
[2021-01-03] MEDS: SODIUM CHLORIDE 1,000 ML IV SCH ×2 (17:12→21:16)
[2021-01-03] MEDS: CHLORHEXIDINE GLUCONATE 4% CLEANSER FOR DECOLONIZATION TP SCH (21:16)
[2021-01-04] MEDS: PROPOFOL 1,000,000 MCG/100 ML VIAL IVPB SCH ×9 (00:15→23:18)
[2021-01-04] MEDS: ALBUTEROL SO4 2.5/IPRATROPIUM 0.5 INH SOL 3 ML VIAL.NEB. NEB SCH ×6 (00:26→20:12)
[2021-01-04] MEDS ORDERED: DEXTROSE 5%-WATER - 50 ML IVPB ONE ×3 (01:06→15:21)
[2021-01-04] MEDS ORDERED: PIPERACILLIN/TAZOBACTAM 3.375 GM VIAL IVPB ONE ×3 (01:06→15:21)
[2021-01-04] MEDS: PIPERACILLIN/TAZOB 3.375 GM 3.375 GM in DEXTROSE 5%-WATER - 50 ML IVPB SCH ×4 (01:08→17:11)
[2021-01-04] MEDS: MIDAZOLAM IN 0.9 % SOD.CHLORID 100 MG/100 ML PLAST..BAG IVPB SCH ×4 (01:10→23:18)
[2021-01-04] MEDS: FENTANYL IVPB 500 MCG/100 ML BAG IVPB SCH ×5 (01:30→21:49)
[2021-01-04] MEDS: INSULIN SLIDING SCALE (NOVOLOG) 1 VIAL SQ SCH ×4 (06:20→21:48)
[2021-01-04] MEDS: NOREPINEPHRINE D5W PREMIX 16,000 MCG/500 ML BAG IVPB SCH ×2 (06:20→11:27)
[2021-01-04] MEDS: SODIUM CHLORIDE 1,000 ML IV SCH ×2 (06:20→15:46)
[2021-01-04 07:22] LABS: HEMATOCRIT 36.7 % (35.4-49); MCH 26.9 pg (25.7-33.7); MCHC 32.7 g/dl (32.0-35.9); MEAN CELL VOLUME 82.2 fl (80-96); MEAN PLT VOLUME 9.9 fl (7.5-11.1); PLATELET COUNT 300 10^3/uL (134-434); RBC 4.47 M/mm3 (4.00-5.60); RDW 17.6 % (11.9-15.9); WHITE BLOOD COUNT 21.5 K/mm3 (4.0-10.0)
[2021-01-04 08:20] LABS: BLOOD UREA NITROGEN 14.2 mg/dL (7-18); CALCIUM 8.9 mg/dL (8.5-10.1); CREATININE 0.7 mg/dL (0.55-1.3); MAGNESIUM 2.2 mg/dL (1.8-2.4); PHOSPHOROUS 4.4 mg/dL (2.5-4.9)
[2021-01-04] MEDS: PANTOPRAZOLE SODIUM 40 MG VIAL IVPUSH SCH (09:09)
[2021-01-04] MEDS: ENOXAPARIN NA (PORCINE) 40 MG/0.4 ML DISP.SYRIN SQ SCH (09:10)
[2021-01-04 09:55] LABS: ANISOCYTOSIS 0; HELMET CELLS 0; HOWELL-JOLLY BODIES 0; MACROCYTOSIS 0; OVALOCYTE 0; PLATELET ESTIMATE NORMAL; ROULEAU 0; SICKELED CELLS 0; TARGET CELLS 0; TEAR DROP CELLS 0; TOXIC GRANULATION 0
[2021-01-04] MEDS: POLYETHYLENE GLYCOL (HEALTHYLAX) 3350 17 GM PACKET PO SCH (10:50)
[2021-01-04] MEDS ORDERED: PT OWN MED DRAWER 7, Y5N ONE ×2 (11:06→15:04)
[2021-01-04 13:41] VITALS: BMI 53.8
[2021-01-04] MEDS: AMINO ACIDS/PROTEIN HYDROLYS 30 ML LIQUID.PKT NGT SCH (16:31)
[2021-01-04] MEDS ORDERED: AMINO ACIDS/PROTEIN HYDROLYS 30 ML LIQUID.PKT NGT SCH (17:30)
[2021-01-04] MEDS: CHLORHEXIDINE GLUCONATE 4% CLEANSER FOR DECOLONIZATION TP SCH (21:48)
[2021-01-05] MEDS: ALBUTEROL SO4 2.5/IPRATROPIUM 0.5 INH SOL 3 ML VIAL.NEB. NEB SCH ×6 (00:24→20:30)
[2021-01-05] MEDS: FENTANYL IVPB 500 MCG/100 ML BAG IVPB SCH ×6 (01:27→21:07)
[2021-01-05] MEDS: PROPOFOL 1,000,000 MCG/100 ML VIAL IVPB SCH ×7 (01:27→21:08)
[2021-01-05] MEDS ORDERED: DEXTROSE 5%-WATER - 50 ML IVPB ONE ×3 (02:04→17:26)
[2021-01-05] MEDS ORDERED: PIPERACILLIN/TAZOBACTAM 3.375 GM VIAL IVPB ONE ×3 (02:04→17:26)
[2021-01-05] MEDS: PIPERACILLIN/TAZOB 3.375 GM 3.375 GM in DEXTROSE 5%-WATER - 50 ML IVPB SCH ×3 (02:30→17:51)
[2021-01-05] MEDS: NOREPINEPHRINE D5W PREMIX 16,000 MCG/500 ML BAG IVPB SCH (05:21)
[2021-01-05] MEDS: INSULIN SLIDING SCALE (NOVOLOG) 1 VIAL SQ SCH ×4 (06:00→22:54)
[2021-01-05 07:06] LABS: HEMATOCRIT 36.5 % (35.4-49); HEMOGLOBIN 11.9 GM/dL (11.7-16.9); MCH 26.6 pg (25.7-33.7); MCHC 32.5 g/dl (32.0-35.9); MEAN CELL VOLUME 81.9 fl (80-96); MEAN PLT VOLUME 9.8 fl (7.5-11.1); PLATELET COUNT 297 10^3/uL (134-434); RBC 4.45 M/mm3 (4.00-5.60); RDW 17.5 % (11.9-15.9); WHITE BLOOD COUNT 19.5 K/mm3 (4.0-10.0)
[2021-01-05] MEDS ORDERED: ROCURONIUM BROMIDE 50 MG/5 ML VIAL IVPUSH ONE (07:52)
[2021-01-05] MEDS: AMINO ACIDS/PROTEIN HYDROLYS 30 ML LIQUID.PKT NGT SCH ×3 (08:03→17:33)
[2021-01-05 08:51] LABS: BLOOD UREA NITROGEN 19.1 mg/dL (7-18); CALCIUM 8.8 mg/dL (8.5-10.1); CREATININE 0.8 mg/dL (0.55-1.3); PHOSPHOROUS 4.5 mg/dL (2.5-4.9)
[2021-01-05] MEDS: MIDAZOLAM IN 0.9 % SOD.CHLORID 100 MG/100 ML PLAST..BAG IVPB SCH ×2 (09:05→19:32)
[2021-01-05] MEDS: MULTIVIT-MINERALS ORAL LIQUID NGT SCH (09:31)
[2021-01-05] MEDS: ENOXAPARIN NA (PORCINE) 40 MG/0.4 ML DISP.SYRIN SQ SCH (09:32)
[2021-01-05] MEDS: PANTOPRAZOLE SODIUM 40 MG VIAL IVPUSH SCH (09:32)
[2021-01-05] MEDS: POLYETHYLENE GLYCOL (HEALTHYLAX) 3350 17 GM PACKET PO SCH (09:42)
[2021-01-05 11:01] LABS: ANISOCYTOSIS 1+; MACROCYTOSIS 0; PLATELET ESTIMATE NORMAL; TEAR DROP CELLS 1+
[2021-01-05] MEDS ORDERED: FUROSEMIDE 40 MG/4 ML INJECTABLE VIAL IVPUSH ONE (12:11)
[2021-01-05] MEDS: VECURONIUM BROMIDE 100 MG/100 ML BAG IVPB SCH (15:05)
[2021-01-05 17:46] LABS: ARTERIAL BLD GAS O2 SATURATION 94.7 % (95-98); ARTERIAL BLOOD GAS BASE EXCESS -4.6 mmol/L (-2-2); ARTERIAL BLOOD GAS PO2 93.8 mmHg (80-100)
[2021-01-05 17:51] LABS: ARTERIAL BLOOD GAS pH 7.162 (7.350-7.450)
[2021-01-05 17:52] LABS: ALLENS TEST POSITIVE; VENT MODE AC; VENT RATE 20
[2021-01-05 20:07] LABS: MAGNESIUM 2.4 mg/dL (1.8-2.4); PHOSPHOROUS 3.3 mg/dL (2.5-4.9)
[2021-01-05 20:28] LABS: ARTERIAL BLD GAS O2 SATURATION 93.7 % (95-98); ARTERIAL BLOOD GAS BASE EXCESS -4.2 mmol/L (-2-2); ARTERIAL BLOOD GAS PO2 82.3 mmHg (80-100); ARTERIAL BLOOD GAS pH 7.219 (7.350-7.450)
[2021-01-05 20:29] LABS: ALLENS TEST POSITIVE
[2021-01-05 20:30] LABS: VENT MODE A/C; VENT RATE 25
[2021-01-05] MEDS: CHLORHEXIDINE GLUCONATE 4% CLEANSER FOR DECOLONIZATION TP SCH (22:50)
[2021-01-06] MEDS: ALBUTEROL SO4 2.5/IPRATROPIUM 0.5 INH SOL 3 ML VIAL.NEB. NEB SCH ×7 (00:01→23:34)
[2021-01-06] MEDS: PROPOFOL 1,000,000 MCG/100 ML VIAL IVPB SCH ×5 (00:35→23:17)
[2021-01-06] MEDS ORDERED: PIPERACILLIN/TAZOBACTAM 3.375 GM VIAL IVPB ONE ×2 (01:22→08:53)
[2021-01-06] MEDS ORDERED: DEXTROSE 5%-WATER - 50 ML IVPB ONE ×3 (01:22→16:53)
[2021-01-06] MEDS: PIPERACILLIN/TAZOB 3.375 GM 3.375 GM in DEXTROSE 5%-WATER - 50 ML IVPB SCH ×2 (01:23→09:06)
[2021-01-06] MEDS: VECURONIUM BROMIDE 100 MG/100 ML BAG IVPB SCH ×2 (02:24→13:35)
[2021-01-06] MEDS: FENTANYL IVPB 500 MCG/100 ML BAG IVPB SCH ×3 (02:25→20:34)
[2021-01-06] MEDS ORDERED: ACETAMINOPHEN 1000 MG/100 ML VIAL IVPB ONE (04:56)
[2021-01-06] MEDS: NOREPINEPHRINE D5W PREMIX 16,000 MCG/500 ML BAG IVPB SCH (05:55)
[2021-01-06] MEDS: INSULIN SLIDING SCALE (NOVOLOG) 1 VIAL SQ SCH ×4 (06:17→22:35)
[2021-01-06 07:05] LABS: ALBUMIN 1.8 g/dl (3.4-5.0); BLOOD UREA NITROGEN 21.7 mg/dL (7-18)
[2021-01-06 07:08] LABS: CREATININE 0.7 mg/dL (0.55-1.3)
[2021-01-06 07:09] LABS: BILIRUBIN,TOTAL 1.6 mg/dL (0.2-1); TOT PROT 6.9 g/dl (6.4-8.2)
[2021-01-06 07:32] LABS: BASO % 0.4 % (0-2.0); EOS % 3.5 % (0-4.5); HEMOGLOBIN 11.7 GM/dL (11.7-16.9); LYMPH % 5.2 % (8-40); MCH 26.9 pg (25.7-33.7); MCHC 32.6 g/dl (32.0-35.9); MEAN CELL VOLUME 82.6 fl (80-96); MEAN PLT VOLUME 9.7 fl (7.5-11.1); MONO % 10.1 % (3.8-10.2); NEUT % 80.8 % (42.8-82.8); PLATELET COUNT 288 10^3/uL (134-434); RBC 4.36 M/mm3 (4.00-5.60); RDW 17.4 % (11.9-15.9); WHITE BLOOD COUNT 21.5 K/mm3 (4.0-10.0)
[2021-01-06] MEDS ORDERED: DOCUSATE NA 100 MG/10 ML UNIT-DOSE CUPS PO PRN (08:58)
[2021-01-06] MEDS: PANTOPRAZOLE SODIUM 40 MG VIAL IVPUSH SCH (09:04)
[2021-01-06] MEDS: ENOXAPARIN NA (PORCINE) 40 MG/0.4 ML DISP.SYRIN SQ SCH (09:05)
[2021-01-06] MEDS: AMINO ACIDS/PROTEIN HYDROLYS 30 ML LIQUID.PKT NGT SCH ×3 (09:05→16:57)
[2021-01-06] MEDS: POLYETHYLENE GLYCOL (HEALTHYLAX) 3350 17 GM PACKET PO SCH (09:12)
[2021-01-06] MEDS: SENNOSIDES 8.8 MG/5 ML BULK BOTTLE PO SCH ×2 (09:46→22:21)
[2021-01-06 10:16] LABS: ANISOCYTOSIS 0; HELMET CELLS 0; HOWELL-JOLLY BODIES 0; MACROCYTOSIS 0; OVALOCYTE 0; PLATELET ESTIMATE NORMAL; ROULEAU 0; SICKELED CELLS 0; TARGET CELLS 0; TEAR DROP CELLS 0; TOXIC GRANULATION 0
[2021-01-06] MEDS ORDERED: PT OWN MED DRAWER 7, Y5N ONE ×2 (10:20→22:21)
[2021-01-06] MEDS: MIDAZOLAM IN 0.9 % SOD.CHLORID 100 MG/100 ML PLAST..BAG IVPB SCH ×2 (10:23→16:50)
[2021-01-06] MEDS: MULTIVIT-MINERALS ORAL LIQUID NGT SCH (10:23)
[2021-01-06] MEDS ORDERED: ceFAZolin SODIUM 1 GM VIAL ONE (16:53)
[2021-01-06] MEDS: CEFAZOLIN 1 GM in DEXTROSE 5%-WATER - 50 ML IVPB SCH (17:09)
[2021-01-06] MEDS: CHLORHEXIDINE GLUCONATE 4% CLEANSER FOR DECOLONIZATION TP SCH (22:22)
[2021-01-07] MEDS ORDERED: ceFAZolin SODIUM 1 GM VIAL ONE ×3 (01:23→16:47)
[2021-01-07] MEDS ORDERED: DEXTROSE 5%-WATER - 50 ML IVPB ONE ×3 (01:23→16:47)
[2021-01-07] MEDS: CEFAZOLIN 1 GM in DEXTROSE 5%-WATER - 50 ML IVPB SCH ×3 (01:28→17:32)
[2021-01-07] MEDS: FENTANYL IVPB 500 MCG/100 ML BAG IVPB SCH ×5 (02:00→19:32)
[2021-01-07] MEDS: VECURONIUM BROMIDE 100 MG/100 ML BAG IVPB SCH ×2 (03:15→12:53)
[2021-01-07] MEDS ORDERED: ACETAMINOPHEN 1000 MG/100 ML VIAL IVPB ONE (03:34)
[2021-01-07] MEDS: ALBUTEROL SO4 2.5/IPRATROPIUM 0.5 INH SOL 3 ML VIAL.NEB. NEB SCH ×5 (03:34→20:12)
[2021-01-07] MEDS: PROPOFOL 1,000,000 MCG/100 ML VIAL IVPB SCH ×6 (04:15→22:28)
[2021-01-07] MEDS: INSULIN SLIDING SCALE (NOVOLOG) 1 VIAL SQ SCH ×4 (06:08→21:24)
[2021-01-07] MEDS: NOREPINEPHRINE D5W PREMIX 16,000 MCG/500 ML BAG IVPB SCH (06:20)
[2021-01-07 07:00] LABS: ARTERIAL BLD GAS O2 SATURATION 93.7 % (95-98); ARTERIAL BLOOD GAS BASE EXCESS 0.8 mmol/L (-2-2); ARTERIAL BLOOD GAS PO2 81.5 mmHg (80-100); ARTERIAL BLOOD GAS pH 7.243 (7.350-7.450)
[2021-01-07 07:04] LABS: HEMATOCRIT 35.2 % (35.4-49); HEMOGLOBIN 11.6 GM/dL (11.7-16.9); MCH 27.1 pg (25.7-33.7); MCHC 32.8 g/dl (32.0-35.9); MEAN CELL VOLUME 82.5 fl (80-96); MEAN PLT VOLUME 9.6 fl (7.5-11.1); PLATELET COUNT 310 10^3/uL (134-434); RBC 4.27 M/mm3 (4.00-5.60); RDW 17.5 % (11.9-15.9); WHITE BLOOD COUNT 21.9 K/mm3 (4.0-10.0)
[2021-01-07 07:08] LABS: ALLENS TEST POSITIVE
[2021-01-07 07:09] LABS: VENT MODE A/C; VENT RATE 22
[2021-01-07 07:22] LABS: CALCIUM 8.9 mg/dL (8.5-10.1)
[2021-01-07 07:23] LABS: MAGNESIUM 2.2 mg/dL (1.8-2.4)
[2021-01-07 07:24] LABS: PHOSPHOROUS 3.3 mg/dL (2.5-4.9)
[2021-01-07 07:25] LABS: CREATININE 0.7 mg/dL (0.55-1.3)
[2021-01-07] MEDS ORDERED: PT OWN MED DRAWER 7, Y5N ONE ×3 (08:39→22:29)
[2021-01-07] MEDS: MIDAZOLAM IN 0.9 % SOD.CHLORID 100 MG/100 ML PLAST..BAG IVPB SCH (08:55)
[2021-01-07] MEDS: AMINO ACIDS/PROTEIN HYDROLYS 30 ML LIQUID.PKT NGT SCH ×3 (08:55→17:31)
[2021-01-07] MEDS: MULTIVIT-MINERALS ORAL LIQUID NGT SCH (09:22)
[2021-01-07] MEDS: PANTOPRAZOLE SODIUM 40 MG VIAL IVPUSH SCH (09:23)
[2021-01-07] MEDS: POLYETHYLENE GLYCOL (HEALTHYLAX) 3350 17 GM PACKET PO SCH (09:23)
[2021-01-07 10:40] LABS: ANISOCYTOSIS 1+; MACROCYTOSIS 0; PLATELET ESTIMATE NORMAL
[2021-01-07] MEDS: ENOXAPARIN NA (PORCINE) 40 MG/0.4 ML DISP.SYRIN SQ SCH (10:41)
[2021-01-07 19:40] LABS: ARTERIAL BLD GAS O2 SATURATION 91.5 % (95-98); ARTERIAL BLOOD GAS BASE EXCESS -3.2 mmol/L (-2-2); ARTERIAL BLOOD GAS PO2 74.5 mmHg (80-100); ARTERIAL BLOOD GAS pH 7.212 (7.350-7.450)
[2021-01-07] MEDS ORDERED: METOPROLOL TARTRATE 5 MG/5 ML VIAL IVPUSH ONE (21:23)
[2021-01-07] MEDS: CHLORHEXIDINE GLUCONATE 4% CLEANSER FOR DECOLONIZATION TP SCH (22:27)
[2021-01-07] MEDS: ASCORBIC ACID 500 MG TABLET (FP) PO SCH (22:30)
[2021-01-07] MEDS: SENNOSIDES 8.8 MG/5 ML BULK BOTTLE PO SCH (22:30)
[2021-01-08] MEDS: ALBUTEROL SO4 2.5/IPRATROPIUM 0.5 INH SOL 3 ML VIAL.NEB. NEB SCH ×5 (00:17→16:45)
[2021-01-08] MEDS: PROPOFOL 1,000,000 MCG/100 ML VIAL IVPB SCH ×9 (00:33→22:54)
[2021-01-08] MEDS: FENTANYL IVPB 500 MCG/100 ML BAG IVPB SCH ×6 (00:34→23:05)
[2021-01-08] MEDS: AMINO ACIDS/PROTEIN HYDROLYS 30 ML LIQUID.PKT NGT SCH ×4 (00:55→17:42)
[2021-01-08] MEDS ORDERED: DEXTROSE 5%-WATER - 50 ML IVPB ONE ×3 (01:05→17:20)
[2021-01-08] MEDS ORDERED: ceFAZolin SODIUM 1 GM VIAL ONE ×3 (01:05→17:20)
[2021-01-08] MEDS: CEFAZOLIN 1 GM in DEXTROSE 5%-WATER - 50 ML IVPB SCH ×3 (01:13→17:28)
[2021-01-08] MEDS: MIDAZOLAM IN 0.9 % SOD.CHLORID 100 MG/100 ML PLAST..BAG IVPB SCH ×4 (01:15→23:06)
[2021-01-08] MEDS ORDERED: METOPROLOL TARTRATE 5 MG/5 ML VIAL IVPUSH ONE (02:10)
[2021-01-08] MEDS: NOREPINEPHRINE D5W PREMIX 16,000 MCG/500 ML BAG IVPB SCH (05:34)
[2021-01-08] MEDS: VECURONIUM BROMIDE 100 MG/100 ML BAG IVPB SCH ×3 (05:35→20:35)
[2021-01-08] MEDS: INSULIN SLIDING SCALE (NOVOLOG) 1 VIAL SQ SCH ×4 (06:18→21:34)
[2021-01-08 06:30] LABS: ARTERIAL BLD GAS O2 SATURATION 95.2 % (95-98); ARTERIAL BLOOD GAS BASE EXCESS -1.9 mmol/L (-2-2); ARTERIAL BLOOD GAS PO2 88.7 mmHg (80-100)
[2021-01-08 06:44] LABS: ALLENS TEST POSITIVE; VENT MODE A/C
[2021-01-08 06:45] LABS: VENT RATE 23
[2021-01-08 07:59] LABS: HEMATOCRIT 35.1 % (35.4-49); HEMOGLOBIN 11.4 GM/dL (11.7-16.9); MCHC 32.6 g/dl (32.0-35.9); MEAN CELL VOLUME 82.9 fl (80-96); MEAN PLT VOLUME 10.2 fl (7.5-11.1); PLATELET COUNT 371 10^3/uL (134-434); RBC 4.23 M/mm3 (4.00-5.60); RDW 17.5 % (11.9-15.9); WHITE BLOOD COUNT 27.8 K/mm3 (4.0-10.0)
[2021-01-08 08:10] LABS: CALCIUM 9.4 mg/dL (8.5-10.1)
[2021-01-08 08:11] LABS: ALBUMIN 1.7 g/dl (3.4-5.0); BLOOD UREA NITROGEN 33.6 mg/dL (7-18); MAGNESIUM 2.2 mg/dL (1.8-2.4)
[2021-01-08 08:14] LABS: CREATININE 0.6 mg/dL (0.55-1.3); PHOSPHOROUS 3.1 mg/dL (2.5-4.9)
[2021-01-08 08:15] LABS: TOT PROT 6.9 g/dl (6.4-8.2)
[2021-01-08] MEDS ORDERED: PT OWN MED DRAWER 7, Y5N ONE (08:51)
[2021-01-08] MEDS: PANTOPRAZOLE SODIUM 40 MG VIAL IVPUSH SCH (09:04)
[2021-01-08] MEDS: ENOXAPARIN NA (PORCINE) 40 MG/0.4 ML DISP.SYRIN SQ SCH (09:04)
[2021-01-08] MEDS: ASCORBIC ACID 500 MG TABLET (FP) PO SCH ×2 (09:05→21:29)
[2021-01-08] MEDS: MULTIVIT-MINERALS ORAL LIQUID NGT SCH (09:05)
[2021-01-08] MEDS: POLYETHYLENE GLYCOL (HEALTHYLAX) 3350 17 GM PACKET PO SCH (09:06)
[2021-01-08 09:42] LABS: ANISOCYTOSIS 1+; MACROCYTOSIS 0; PLATELET ESTIMATE NORMAL; TARGET CELLS 1+
[2021-01-08] MEDS ORDERED: ZINC SULFATE 220 MG CAPSULE (FP) PO SCH (10:00)
[2021-01-08] MEDS ORDERED: POLYETHYLENE GLYCOL (HEALTHYLAX) 3350 17 GM PACKET PO SCH (12:30)
[2021-01-08] MEDS: SENNOSIDES 8.8 MG/5 ML BULK BOTTLE PO SCH (21:29)
[2021-01-08] MEDS: CHLORHEXIDINE GLUCONATE 4% CLEANSER FOR DECOLONIZATION TP SCH (21:30)
[2021-01-09] MEDS: AMINO ACIDS/PROTEIN HYDROLYS 30 ML LIQUID.PKT NGT SCH ×2 (00:15→05:54)
[2021-01-09] MEDS ORDERED: ceFAZolin SODIUM 1 GM VIAL ONE (01:08)
[2021-01-09] MEDS ORDERED: DEXTROSE 5%-WATER - 50 ML IVPB ONE (01:09)
[2021-01-09] MEDS: CEFAZOLIN 1 GM in DEXTROSE 5%-WATER - 50 ML IVPB SCH (01:10)
[2021-01-09] MEDS: PROPOFOL 1,000,000 MCG/100 ML VIAL IVPB SCH ×3 (01:22→07:01)
[2021-01-09] MEDS: FENTANYL IVPB 500 MCG/100 ML BAG IVPB SCH (03:45)
[2021-01-09] MEDS: NOREPINEPHRINE D5W PREMIX 16,000 MCG/500 ML BAG IVPB SCH (05:53)
[2021-01-09] MEDS: INSULIN SLIDING SCALE (NOVOLOG) 1 VIAL SQ SCH (06:03)
[2021-01-09] MEDS: MIDAZOLAM IN 0.9 % SOD.CHLORID 100 MG/100 ML PLAST..BAG IVPB SCH ×2 (07:01→08:30)
[2021-01-09] MEDS ORDERED: LORazepam 2 MG/ML SDV VIAL IVPUSH PRN (09:55)
[2021-01-09] MEDS ORDERED: MORPHINE SULFATE/0.9% NACL/PF 100 MG/100 ML BAG IVPB SCH ×2 (10:00)
[2021-01-09] MEDS ORDERED: morphine SULFATE 4 MG/ML VIAL IVPUSH ONE (10:00)
[2021-01-09 11:30] VITALS: BP 123/67; PULSE 130; TEMP 99.1
== END 2021-01-09 11:05 | disposition expired | DRG 951 ==
LOC: JER 04:02 → JERBED 08:07 → JICU 09:21
PROVIDERS: ADMIT Internal Medicine Pulmonary Disease; ATTEND Internal Medicine Pulmonary Disease
PROC: 0DH67UZ Insertion of Feeding Device into Stomach, Via Natural or Artificial Opening (ICD-10-PCS; principal; 2020-12-28)
PROC: 5A1955Z Respiratory Ventilation, Greater than 96 Consecutive Hours (ICD-10-PCS; 2020-12-28)
PROC: 0BH17EZ Insertion of Endotracheal Airway into Trachea, Via Natural or Artificial Opening (ICD-10-PCS; 2020-12-28)
PROC: 05HM33Z Insertion of Infusion Device into Right Internal Jugular Vein, Percutaneous Approach (ICD-10-PCS; 2020-12-28)
PROC: B543ZZA Ultrasonography of Right Jugular Veins, Guidance (ICD-10-PCS; 2020-12-28)
PROC: 05HN33Z Insertion of Infusion Device into Left Internal Jugular Vein, Percutaneous Approach (ICD-10-PCS; 2021-01-04)
PROC: B544ZZA Ultrasonography of Left Jugular Veins, Guidance (ICD-10-PCS; 2021-01-04)
DX: T50.901A Poisoning by unspecified drugs, medicaments and biological substances, accidental (unintentional), initial encounter (principal); A41.9 Sepsis, unspecified organism; E87.1 Hypo-osmolality and hyponatremia; J69.0 Pneumonitis due to inhalation of food and vomit; R57.9 Shock, unspecified; J80 Acute respiratory distress syndrome; E66.01 Morbid (severe) obesity due to excess calories; F20.9 Schizophrenia, unspecified; F25.9 Schizoaffective disorder, unspecified; F31.9 Bipolar disorder, unspecified; B19.20 Unspecified viral hepatitis C without hepatic coma; E11.9 Type 2 diabetes mellitus without complications; F11.10 Opioid abuse, uncomplicated; F12.90 Cannabis use, unspecified, uncomplicated; F14.10 Cocaine abuse, uncomplicated; F17.210 Nicotine dependence, cigarettes, uncomplicated; F19.10 Other psychoactive substance abuse, uncomplicated; F41.9 Anxiety disorder, unspecified; F90.9 Attention-deficit hyperactivity disorder, unspecified type; G40.909 Epilepsy, unspecified, not intractable, without status epilepticus; I10 Essential (primary) hypertension; J45.909 Unspecified asthma, uncomplicated; R00.0 Tachycardia, unspecified; Z66 Do not resuscitate; Z68.43 Body mass index [BMI] 50.0-59.9, adult; R65.21 Severe sepsis with septic shock; K59.00 Constipation, unspecified; Y92.89 Other specified places as the place of occurrence of the external cause
CPT/HCPCS: 36415; 36600; 71045-TC-FY; 71275-TC; 74018-TC-FY; 80048; 80053; 80307; 81003; 82550; 82803; 82962; 83735; 84100; 84484; 85025; 87040; 87070; 87086; 87186; 87205; 93005; 93010; 94002; 94640; 99291; 99292; C9803; J0131; Q9967; U0003; U0005